=== PATIENT | female | born 1975 | race Caucasian/White ===

== ENCOUNTER 2022-05-30 08:55 | Outpatient (CLI) | payer MEDICAID, SELFPAY ==
--- NOTE | 2022-05-30 09:15 | CRLHL7_ITS ---
For Patients: As a result of the 21st Century Cures Act, medical imaging exams and procedure reports are released immediately into your electronic medical record. You may view this report before your referring provider. If you have questions, please contact your health care provider. BILATERAL BREAST MRI WITHOUT AND WITH GADOLINIUM CLINICAL HISTORY: 46-year-old female with history of LEFT breast atypical ductal hyperplasia. INDICATION FOR BREAST MRI: Screening breast MRI in this high-risk woman. COMPARISON STUDIES: Mammogram 11/29/2021. CONTRAST: 15 mL Dotarem. TECHNIQUE: The patient was positioned prone using a breast coil. Multiple imaging sequences were obtained using 1-1.5 mm thick slices with no gap. The image sequences include T2-weighted STIR in the axial plane, T1-weighted nonfat-saturated gradient echo in the axial plane, pre- and post-contrast T1-weighted FLASH 3D with fat suppression in the axial plane, and T1-weighted FLASH high-resolution 3D with fat suppression in the sagittal plane. Image post-processing was performed on a [employer] workstation. Complex 3D rendering including maximum intensity projections (MIPS) and volumetric renderings were obtained to optimize visualization of the extent of pathology and relationship to the nipple, skin, and chest wall. This aids in determining feasibility of breast conservation surgery. Subtraction, multiplanar reconstruction, mean curve determination, and angiogenesis mapping were also performed. The study was technically adequate. FINDINGS: Amount of Fibroglandular Tissue: Heterogeneous fibroglandular tissue. Breast background enhancement: Minimal. RIGHT and RIGHT breast: No suspicious mass or mass enhancement in either breast. Lymph nodes: No morphologically abnormal axillary lymph nodes or internal mammary lymph nodes. Other findings: None. IMPRESSIONS AND RECOMMENDATIONS: No MRI findings for malignancy in either breast. No morphologically abnormal axillary lymph nodes or internal mammary lymph nodes. Would recommend continuing with yearly screening mammography. If screening MRIs are felt be indicated, recommend that these be offset at six month intervals with the screening mammogram. BI-RADS: BI-RADS Category 2: Benign Nolvia Kimbrough M.D. Diagnostic/Breast Radiologist [email or web address] Transcribed: 10:00 a.m. DW/Dictated by: Nolvia Kimbrough MD @ 06/02/2022 9:38:00 AM (Electronically Signed)
== END 2022-05-30 08:56 | disposition home or self-care (01) ==
LOC: MRI 08:58
PROVIDERS: PCP Family Medicine; Visit Provider Surgery
DX: N60.92 Unspecified benign mammary dysplasia of left breast (principal)
CPT/HCPCS: 77049; A9575

== ENCOUNTER 2022-06-12 14:08 | Emergency (ER) | payer MEDICAID, SELFPAY ==
[2022-06-12 14:30] VITALS: BP 124/86; PULSE 89; RESP 16; TEMP 36.9; O2SAT 97; BMI 21.5
--- NOTE | 2022-06-12 14:53 | CRLHL7_ITS ---
For Patients: As a result of the Cures Act, medical imaging exams and procedure reports are released immediately into your electronic medical record. You may view this report before your referring provider. If you have questions, please contact your health care provider. INDICATION: Facial injury. TECHNIQUE: CT maxillofacial without contrast. COMPARISON: None. FINDINGS: Facial bones: No fractures or bone lesions. Specifically the nasal bones, temporomandibular joints, maxilla and mandible appear intact. Orbits and globes: Unremarkable. Globes are intact. No sign of intraorbital hemorrhage or emphysema. Sinuses: No acute or significant findings. Soft tissues: Unremarkable. IMPRESSION: Negative facial CT. No sign of acute injury. Please note that all CT scans at this facility use dose modulation, iterative reconstruction, and/or weight-based dosing when appropriate to reduce radiation dose to as low as reasonably achievable. Dictated by Matt Agustin MD @ 06/12/2022 4:16:27 PM (Electronically Signed)
--- NOTE | 2022-06-12 14:53 | CRLHL7_ITS ---
For Patients: As a result of the Century Cures Act, medical imaging exams and procedure reports are released immediately into your electronic medical record. You may view this report before your referring provider. If you have questions, please contact your health care provider. INDICATION: Fall 2 weeks ago. TECHNIQUE: CT head without contrast. COMPARISON: None. FINDINGS: CSF spaces: Within normal limits for age. Brain parenchyma and extra-axial spaces: The cavanaugh-white differentiation is normal. No sign of mass, hemorrhage, or midline shift. No extra-axial fluid collection. Skull base and calvarium: The visualized paranasal sinuses and mastoid air cells demonstrate no acute or significant findings. The visualized orbits are grossly unremarkable. Mild soft tissue swelling superior to the right orbit. No skull fractures. IMPRESSION: No acute intracranial hemorrhage identified. No skull fractures identified. Please note that all CT scans at this facility use dose modulation, iterative reconstruction, and/or weight-based dosing when appropriate to reduce radiation dose to as low as reasonably achievable. Dictated by Matt Agustin MD @ 06/12/2022 4:18:44 PM (Electronically Signed)
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
[2022-06-12 16:41] VITALS: BP 124/86; PULSE 89; RESP 16; TEMP 36.9
== END 2022-06-12 16:41 | disposition home or self-care (01) ==
PROVIDERS: Emergency Provider Emergency Medicine Emergency Medical Services; PCP Family Medicine
DX: S09.90XA Unspecified injury of head, initial encounter (principal); S20.211A Contusion of right front wall of thorax, initial encounter; V00.031A Pedestrian on foot injured in collision with rider of standing electric scooter, initial encounter
CPT/HCPCS: 70450; 70486; 99284; 99285

== ENCOUNTER 2022-12-24 08:09 | Outpatient (CLI) | payer MEDICAID, SELFPAY ==
--- NOTE | 2022-12-24 08:15 | CRLHL7_ITS ---
For Patients: As a result of the Century Cures Act, medical imaging exams and procedure reports are released immediately into your electronic medical record. You may view this report before your referring provider. If you have questions, please contact your health care provider. BILATERAL SCREENING MAMMOGRAM WITH COMPUTER-AIDED DETECTION AND TOMOSYNTHESIS TECHNIQUE: CC and MLO views were obtained. These mammographic images have been obtained using full-field digital technique. These mammographic images were interpreted with the benefit of computer-aided detection. Breast Tomosynthesis was used in this interpretation. COMPARISON FILM: 11/13/21. FINDINGS: The breasts are heterogeneously dense, which may obscure small masses IMPRESSION: There is no radiographic evidence for malignancy. ASSESSMENT: BI-RADS Category 2: Benign RECOMMENDATION: Routine screening mammogram in 1 year. A lay language report of this examination will be provided to the patient. Colton Mcintyre M.D. Diagnostic Radiologist [email or web address] Transcribed: 12:52 p.edda fallon/Dictated by: Colton Mcintyre MD @ 12/24/2022 11:09:00 AM (Electronically Signed)
== END 2022-12-24 08:10 | disposition home or self-care (01) ==
LOC: MAMMO 08:09
PROVIDERS: PCP Family Medicine; Visit Provider Surgery
DX: Z12.31 Encounter for screening mammogram for malignant neoplasm of breast (principal); R92.2 Inconclusive mammogram
CPT/HCPCS: 77063; 77067

== ENCOUNTER 2023-04-29 09:05 | Outpatient (CLI) | payer MEDICAID, SELFPAY | END 2023-04-29 09:06 | disposition home or self-care (01) | PROVIDERS: PCP Family Medicine; Visit Provider Family Medicine | DX: F10.10 Alcohol abuse, uncomplicated (principal); R11.10 Vomiting, unspecified; Z13.6 Encounter for screening for cardiovascular disorders | CPT/HCPCS: 80053; 80061; 83690 ==

== ENCOUNTER 2023-05-12 11:42 | Outpatient (CLI) | payer MEDICAID, SELFPAY ==
--- NOTE | 2023-05-12 12:09 | W.ANESCHARGE ---
Anesthesia Charges Start Date/Time Anesthesia Start Date: 05/12/23 Anesthesia Start Time: 12:18 Stop Date/Time Anesthesia Stop Date: 05/12/23 Anesthesia Stop Time: 13:04
--- NOTE | 2023-05-12 13:06 | W.ANESCHARGE ---
Anesthesia Charges Start Date/Time Anesthesia Start Date: 05/12/23 Anesthesia Start Time: 12:18 Stop Date/Time Anesthesia Stop Date: 05/12/23 Anesthesia Stop Time: 13:04
== END 2023-05-12 11:43 | disposition home or self-care (01) ==
LOC: OP CLINIC 11:42
PROVIDERS: PCP Family Medicine; Visit Provider Surgery
DX: Z12.11 Encounter for screening for malignant neoplasm of colon (principal); K63.5 Polyp of colon; K64.4 Residual hemorrhoidal skin tags
CPT/HCPCS: 00811; 45385; 88305; J2405; J2704

== ENCOUNTER 2023-06-22 14:34 | Outpatient (CLI) | payer MEDICAID, SELFPAY | END 2023-06-22 14:35 | disposition home or self-care (01) | PROVIDERS: PCP Family Medicine; Visit Provider Family Medicine | DX: R11.0 Nausea (principal); R10.11 Right upper quadrant pain; R63.4 Abnormal weight loss | CPT/HCPCS: 80053; 83690 ==

== ENCOUNTER 2023-06-22 21:19 | Observation (INO) | payer MEDICAID, SELFPAY ==
[2023-06-22 21:50] VITALS: BP 116/76; PULSE 101; RESP 18; TEMP 37.1; O2SAT 98; BMI 19.2
--- NOTE | 2023-06-22 22:42 | ED_ITS ---
HPI - Abdominal Pain General Time Seen by Provider: 22:41 Date Seen: 06/22/23 Chief Complaint: Unspecified Complaint, Adult Stated Complaint: Dr. Mario sent her here Time Seen by Provider: 06/22/23 22:41 Source: patient, RN notes reviewed and old records reviewed Mode of arrival: ambulatory Limitations: no limitations History of Present Illness HPI narrative: Patient is a 47-year-old female that was referred to the ER by her primary care provider after her labs came back elevated tonight, LFTs were elevated and lipase was elevated. Patient went to clinic earlier today for 11-12 days of nausea and vomiting, inability to really keep anything in. She denied any fever, no abdominal pain, no blood in vomit. She has a recent history of significant alcohol use but has not drinking alcohol and 11 days. Patient states she did take 8 mg of Zofran that was given per prescription from the appointment, has not had any emesis now since 3:00 p.m. after taking that. She has taken a little bit of water and a little broth in but that is all. She has had some intermittent diarrhea. Looking at her visit with Dr. Mario from earlier today, there is some weight loss proceeding these issues. He felt there was a little bit of right upper quadrant tenderness when he called to speak with the ED provider, spoke with Dr. Hebert. She wonders if she is going to get IV fluids here or in the hospital, is also wondering about IV antibiotics. I reviewed with her that we would certainly be getting imaging, did already order gallbladder ultrasound to ensure that there were was no underlying gallstone as the causative pathology. Certainly we can start some IV fluids. If she is not having any abdominal pain, does not need to be admitted for pain control. If she cannot take orals that is a separate issue and may need IV fluid management. We will see how her imaging turns out, have added on a few other labs to recheck. Labs from earlier this afternoon show normal bilirubin, lipase 1523, AST 270, ALT 61, alkaline phosphatase 172. CBC was also done. Related Data Patient : No Previous Rx's Medication Instructions Recorded sertraline 100 mg tablet 150 mg (1.5 x 100 mg) PO QDAY #135 03/31/23 tabs clonazepam 0.5 mg tablet See Rx Instructions PO .ud #42 tabs 10/11/23 clonazepam 1 mg tablet See Rx Instructions PO QDAY #21 05/27/23 tabs escitalopram oxalate 10 mg tablet 10 mg PO QDAY #30 tabs 06/22/23 ondansetron 8 mg disintegrating 8 mg PO Q8H PRN nausea and 06/22/23 tablet vomiting #20 tabs Allergies Allergy/AdvReac Type Severity Reaction Status Date / Time Penicillins Allergy Mild Verified 06/22/23 23:53 Review of Systems Status of ROS Reports: 6 or more systems reviewed and unremarkable except as noted in History and below PFSH PFSH Surgical History Status post hysterectomy ?Z90.710 - Acquired absence of both cervix and uterus (ICD-10) Status post delivery ?Z98.891 - History of uterine scar from previous surgery (ICD-10) Status post appendectomy ?Z90.49 - Acquired absence of other specified parts of digestive tract (ICD- 10) Family History Other Colon cancer Hodgkins disease Social History Narrative: Nicotine vapor product user What is your current living situation?: I presently have a place to live Problems where you live: declined to answer In the past 12 months, utilities in danger of being shut off: no In past 12 months, lack of transportation kept you from medical appts, meetings, work, or getting things needed for daily living: no In the past 12 mos, have been you worried that your food would run out before you had money to buy more?: never true In the past 12 mos, the food you bought just didn't last and you didn't have money to buy more?: never true Smoking Status: Smoker, status unknown How often does anyone, including family, friends and others, physically hurt you : never How often does anyone, including family, friends and others, insult or talk down to you: never How often does anyone, including family, friends and others, threaten you with harm: never How often does anyone, including family, friends and others, scream or curse at you: never Little interest or pleasure in doing things: more than half the days Feeling down, depressed, or hopeless: more than half the days Exam Const: Vital Signs, click to edit/add: Vital Signs - 24 hr 06/22/23 21:50 Temperature 98.8 F Pulse Rate [Pulse Oximeter] 101 H Respiratory Rate 18 Blood Pressure [Ri ght Upper Arm] 116/76 Pulse Oximetry 98 Oxygen Delivery Me thod Room Air Yulia is a 47-year-old female that is alert, interactive, no apparent distress. Sclera clear, conjugate gaze, very pleasant, speaking in complete sentences with normal speech. Neck is supple, no masses, lungs are clear with good air entry. CV regular rate and rhythm, no murmur. Abdomen is soft, nondistended, no rebound or guarding, no organomegaly, nontender. She certainly does not have any epigastric or right upper quadrant tenderness on my examination tonight. Skin visualized without any jaundice or rash. Documenting provider has reviewed patient's vital signs: yes Course Course ED Course: Will place an IV, give her L of normal saline. She is not feeling nauseated right now. Will recheck amylase and lipase, lactate, coagulation factors, confirm negative alcohol status. I have ordered right upper quadrant ultrasound to look at possibility of gallbladder disease with gallstones but do wonder abo ut abdominal imaging with CT. She really is not tender at all. I do wonder possibly the lipase might be coming from the nausea and vomiting that she states has been quite prominent. Her weight loss over the last few months is also worrisome. Have discussed with her the doing CT abdomen pelvis with IV contrast while she is here, she would like to proceed with this and I did subsequently order it. Reevaluation(s) Time of Reevaluation #1: 01:08 Reevaluation #1: Reviewed with patient her CT findings. 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 She does not seem to be symptomatic from this, would have her follow-up outpatient. Will have them obtain a urinalysis just to ensure no concerning underlying changes with this. She has had history a kidney stone before that required intervention. We reviewed the ultrasound findings. She understands that she will likely be getting an MRCP later today. We did discuss the remote possibility of needing an ERCP which would require transfer. At this time she is not having any pain, nausea is better overall than it has been. She is done with her initial fluids. Will order more IV fluids and an IV dose of Zofran for her to ensure that we continue to keep her nausea and vomiting controlled. Consultations Consultation #1: Just spoke with the E- hospitalist Dr. Fung, he will accept patient, plan will be for MRCP in the morning, IV fluid and nausea management overnight, pain management if it is needed. Time: 00:59 Vital Signs Vital signs: Initial Vital Signs Temperature 98.8 F 06/22/23 21:50 Temperature Source Temporal Artery Scan 06/22/23 21:50 Pulse Rate 101 H 06/22/23 21:50 Respiratory Rate 18 06/22/23 21:50 Blood Pressure 116/76 06/22/23 21:50 Blood Pressure Mean 89 06/22/23 21:50 Blood Pressure Position Sitting 06/22/23 21:50 Pulse Oximetry 98 06/22/23 21:50 Oxygen Delivery Method Room Air 06/22/23 21:50 Vital Signs Temperature 98.8 F 06/22/23 21:50 Pulse Rate 101 H 06/22/23 21:50 Respiratory Rate 18 06/22/23 21:50 Blood Pressure 116/76 06/22/23 21:50 Pulse Oximetry 98 06/22/23 21:50 Oxygen Delivery Method Room Air 06/22/23 21:50 Temperature 98.8 F 06/22/23 21:50 Pulse Rate 101 H 06/22/23 21:50 Respiratory Rate 18 06/22/23 21:50 Blood Pressure 116/76 06/22/23 21:50 Pulse Oximetry 98 06/22/23 21:50 Oxygen Delivery Method Room Air 06/22/23 21:50 Medications Administered Medications: Discontinued Medications Generic Name Dose Route Start Last Admin Trade Name Freq PRN Reason Stop Dose Admin Sodium Chloride 1,000 mls @ 500 mls/hr 06/22/23 22:52 06/22/23 23:53 0.9 % Sodium Chloride 1000 Ml IV 06/23/23 00:51 500 mls/hr .Q2H GENOVEVA Administration MDM - Abdominal Pain Lab Data Attestation: I reviewed the patient's lab results. Labs: Lab Results 06/22/23 Range/Units 23:54 INR 1.02 (0.91-1.10) APTT 28 (23-33) Seconds Lactate 0.6 (0.5-1.9) mmol/L Magnesium 1.7 (1.5-2.6) mg/dL Amylase 197 H (18-89) U/L Lipase 1336 H (23-300) U/L Ethyl Alcohol < 0.01 L (0.01-0.03) % Imaging Data CT scan - abdomen: Attestation: I have reviewed the pertinent imaging results. Radiologist's impression: Patient: YULIA VELOZ Facility:?[facility] Patient ID:?[id number] Site Patient ID:?[id number]. Site :?[id number] Study:?CT Abdomen/Pelvis w/ 55cc [id number]/2023 11:55:42 PM Ordering Physician:Dominic Walters Final Report: INDICATION: Nausea and vomiting for 12 days, elevated lipase, weight loss TECHNIQUE: CT abdomen and pelvis acquired with 55 cc Isovue 370 IV contrast. Permanently re corded images are archived. COMPARISON: Right upper quadrant ultrasound from the same day. FINDINGS: Lower chest: Unremarkable. Liver: Diffuse fatty infiltration with a more ill-defined area of hyp oattenuation adjacent to the falciform ligament in the left hepatic lobe, compatible with increased focal fatty infiltration. Normal size and contour. No suspicious mass. Gallbladder and bile ducts: Unremarkable. No stones or inflammation. No biliary dilatation. Pancreas: Unremarkable. No mass or inflammation. Spleen: Unremarkable. Normal in size. No masses. Adrenal glands: Unremarkable. No nodules. 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 The lower pole moiety appears chronically occluded with associated dilatation of the lower pole collecting system. This lower pole moiety contains a 12 mm stone. The upper pole is normal. Unremarkable right kidney. Normal ureters and urinary bladder. GI tract: Fatty infiltration of the submucosa of the colon diffusely. Normal in caliber. No sign of inflammation. The appendix is not clearly visualized; however, there are no inflammatory changes in the right lower quadrant. Vasculature: Abdominal aorta is normal in caliber. Mesenteric arteries are patent. Lymph nodes: No lymphadenopathy. Peritoneum/Abdominal Wall: Unremarkable. No free air or significant free fluid. Pelvis: Status post hysterectomy. Bones: Unremarkable for age. 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 This lower pole moiety contains a 12 mm stone within the lower pole moiety. While these findings are likely chronic it is difficult to exclude superimposed infection if there is focal left-sided flank tenderness. Hepatic steatosis. Fatty infiltration of the submucosa of the colon diffusely. This can be seen with obesity or chronic inflammatory bowel disease. Please note that all CT scans at this facility use dose modulation, iterative reconstruction, and/or weight-based dosing when appropriate to reduce radiation dose to as low as reasonably achievable. Dictated by Charles Cleveland MD @ 06/23/2023 12:25:30 AM (Electronic Signature) US - abdomen: Attestation: I have reviewed the pertinent imaging results. Radiologist's impression: Patient: YULIA VELOZ Facility:?[facility] Patient ID:?[id number] Site Patient ID:?[id number]. Site :?[id number] Study:?US Abdomen/Pelvis -06/22/2023 11:45:19 PM Ordering Physician:?Marleen Walters Final Report: INDICATION: Right upper quadrant abdomen pain. TECHNIQUE: Ultrasound abdomen limited. Sonographic images of the right upper quadrant were obtained using cavanaugh-scale and color Doppler images. COMPARISON: None. FINDINGS: Liver: Echogenic hepatic parenchyma. No suspicious masses. No intrahepatic biliary dilatation. Gallbladder: Biliary sludge. Normal wall thickness. No pericholecystic fluid. Negative sonographic Hooks sign. Common bile duct: 9 mm. Pancreas: Unremarkable. Right kidney: Normal in size. Normal echotexture and cortex. No suspicious masses, stones, or hydronephrosis. Vasculature: Proximal abdominal aorta and IVC are unremarkable. IMPRESSION: Mild dilation of common bile duct measuring 9 millimeters. Distal obstructing stone not excluded. Recommend correlation with LFTs, including bilirubin. MRCP may be of benefit if clinically indicated. Biliary sludge without cholelithiasis or cholecystitis. Hepatic steatosis. Dictated by Kyle Osorio MD @ 06/23/2023 12:11:20 AM (Electronic Signature) Discharge Plan Discharge Clinical Impression: Common bile duct dilatation, Acute pancreatitis Patient Disposition: Admitted As Observation
--- NOTE | 2023-06-22 22:43 | CRLHL7_ITS ---
For Patients: As a result of the Century Cures Act, medical imaging exams and procedure reports are released immediately into your electronic medical record. You may view this report before your referring provider. If you have questions, please contact your health care provider. INDICATION: Right upper quadrant abdomen pain. TECHNIQUE: Ultrasound abdomen limited. Sonographic images of the right upper quadrant were obtained using cavanaugh-scale and color Doppler images. COMPARISON: None. FINDINGS: Liver: Echogenic hepatic parenchyma. No suspicious masses. No intrahepatic biliary dilatation. Gallbladder: Biliary sludge. Normal wall thickness. No pericholecystic fluid. Negative sonographic Hooks sign. Common bile duct: 9 mm. Pancreas: Unremarkable. Right kidney: Normal in size. Normal echotexture and cortex. No suspicious masses, stones, or hydronephrosis. Vasculature: Proximal abdominal aorta and IVC are unremarkable. IMPRESSION: Mild dilation of common bile duct measuring 9 millimeters. Distal obstructing stone not excluded. Recommend correlation with LFTs, including bilirubin. MRCP may be of benefit if clinically indicated. Biliary sludge without cholelithiasis or cholecystitis. Hepatic steatosis. Dictated by Kyle Osorio MD @ 06/23/2023 12:11:20 AM (Electronically Signed)
--- NOTE | 2023-06-22 22:57 | CRLHL7_ITS ---
For Patients: As a result of the 21st Century Cures Act, medical imaging exams and procedure reports are released immediately into your electronic medical record. You may view this report before your referring provider. If you have questions, please contact your health care provider. INDICATION: Nausea and vomiting for 12 days, elevated lipase, weight loss TECHNIQUE: CT abdomen and pelvis acquired with 55 cc Isovue 370 IV contrast. Permanently recorded images are archived. COMPARISON: Right upper quadrant ultrasound from the same day. FINDINGS: Lower chest: Unremarkable. Liver: Diffuse fatty infiltration with a more ill-defined area of hypoattenuation adjacent to the falciform ligament in the left hepatic lobe, compatible with increased focal fatty infiltration. Normal size and contour. No suspicious mass. Gallbladder and bile ducts: Unremarkable. No stones or inflammation. No biliary dilatation. Pancreas: Unremarkable. No mass or inflammation. Spleen: Unremarkable. Normal in size. No masses. Adrenal glands: Unremarkable. No nodules. 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 The lower pole moiety appears chronically occluded with associated dilatation of the lower pole collecting system. This lower pole moiety contains a 12 mm stone. The upper pole is normal. Unremarkable right kidney. Normal ureters and urinary bladder. GI tract: Fatty infiltration of the submucosa of the colon diffusely. Normal in caliber. No sign of inflammation. The appendix is not clearly visualized; however, there are no inflammatory changes in the right lower quadrant. Vasculature: Abdominal aorta is normal in caliber. Mesenteric arteries are patent. Lymph nodes: No lymphadenopathy. Peritoneum/Abdominal Wall: Unremarkable. No free air or significant free fluid. Pelvis: Status post hysterectomy. Bones: Unremarkable for age. 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 This lower pole moiety contains a 12 mm stone within the lower pole moiety. While these findings are likely chronic it is difficult to exclude superimposed infection if there is focal left-sided flank tenderness. Hepatic steatosis. Fatty infiltration of the submucosa of the colon diffusely. This can be seen with obesity or chronic inflammatory bowel disease. Please note that all CT scans at this facility use dose modulation, iterative reconstruction, and/or weight-based dosing when appropriate to reduce radiation dose to as low as reasonably achievable. Dictated by Charles Cleveland MD @ 06/23/2023 12:25:30 AM (Electronically Signed)
[2023-06-22] MEDS: 0.9 % SODIUM CHLORIDE 1000 ml 1,000 ML 500 ML IV (23:53)
[2023-06-22 23:57] LABS: Lactate* 0.6 mmol/L (0.5-1.9)
[2023-06-23 00:16] LABS: Amylase* 197 U/L (18-89); Lipase* 1336 U/L (23-300)
[2023-06-23 00:17] LABS: Magnesium* 1.7 mg/dL (1.5-2.6)
[2023-06-23 00:20] LABS: Ethanol* < 0.01 % (0.01-0.03); INR 1.02 (0.91-1.10)
[2023-06-23 00:21] LABS: Partial Thromboplastin Time* 28 Seconds (23-33)
[2023-06-23] MEDS: LACTATED RINGERS 1000 ML 1,000 ML 125 ML IV ×3 (01:58→19:23)
[2023-06-23] MEDS: ONDANSETRON 2 MG/ML inj 4 MG IVP (01:58)
[2023-06-23 02:11] VITALS: BP 116/71; PULSE 80; RESP 16; O2SAT 99; BMI 19.7
--- NOTE | 2023-06-23 02:15 | ED.NURSE ---
report to mino SANCHEZ med [facility]
--- NOTE | 2023-06-23 03:38 | W.PM.THH&P_ITS ---
Telehealth- H&P: HPI History of Present Illness Date Seen: 06/23/23 Chief complaint: Nausea and Vomiting with Lab Abnormality Narrative: Yulia Childress is seen as an Interactive Telehealth visit. Yulia Childress is a 47 year old male who was told to present to the emergency room by her primary care provider for abnormal liver and pancreatic labs. Yulia has a significant past medical history of depression, anxiety, migraine headaches and alcohol abuse. Yulia had presented to her primary doctor today with ongoing 11- day history of unrelenting nausea and vomiting. Laboratory investigation was done at the time of the clinic visit, but when the results returned later, Yulia was called and was told to present to the emergency room for further evaluation. In the emergency room, Yulia states that she has had unrelenting nausea and vomiting over the last 11 days but really denies any significant pain. She states that she has been more weak and also dizzy with her inability to tolerate oral intake. She states that she only has some pain when vomiting in her lower back and very minimal pain in her abdomen toward the right upper quadrant. She states that she has been using alcohol approximately 2 drinks per day of [place] Rosalio up until 11 days ago, but at that time she quit drinking and has not had a drink since. She also admits to using some intermittent marijuana but not on a daily basis. She states that her vomitus has mostly been bile type looking. She denies any dark or tarry stools and states that her stools have been quite light. Eating does trigger her nausea, but she continues to have ongoing nausea and vomiting even when not eating. She has had some chills but denies any fever. She was evaluated in the emergency room with a CT scan and ultrasound of the abdomen and with the abnormal findings, she is currently being admitted to the medical service for further evaluation and treatment. At the time I am seeing Yulia, she confirms the above history. She otherwise denies any other acute complaints or problems currently. EMR is reviewed for history. Review of Systems Status of ROS: Reports: 10 or more systems reviewed and unremarkable except as noted in History and below [facility] Surgical History Status post hysterectomy ?Z90.710 - Acquired absence of both cervix and uterus (ICD-10) Status post delivery ?Z98.891 - History of uterine scar from previous surgery (ICD-10) Status post appendectomy ?Z90.49 - Acquired absence of other specified parts of digestive tract (ICD- 10) Family History Other Colon cancer Hodgkins disease Social History Narrative: Nicotine vapor product user What is your current living situation?: I presently have a place to live Problems where you live: declined to answer In the past 12 months, utilities in danger of being shut off: no In past 12 months, lack of transportation kept you from medical appts, meetings, work, or getting things needed for daily living: no In the past 12 mos, have been you worried that your food would run out before y ou had money to buy more?: never true In the past 12 mos, the food you bought just didn't last and you didn't have money to buy more?: never true Smoking Status: Smoker, status unknown How often does anyone, including family, friends and others, physically hurt you : never How often does anyone, including family, friends and others, insult or talk down to you: never How often does anyone, including family, friends and others, threaten you with harm: never How often does anyone, including family, friends and others, scream or curse at you: never Little interest or pleasure in doing things: more than half the days Feeling down, depressed, or hopeless: more than half the days Meds Home Medications and Allergies Allergies Allergy/AdvReac Type Severity Reaction Status Date / Time Penicillins Allergy Mild Verified 06/22/23 23:53 Exam Narrative Exam Narrative: Physical Exam GENERAL: ?vital signs reviewed, well developed and nourished HEENT: pupils are equal round and reactive to light, extraocular movements are grossly within normal limits and oral mucosa is moist. NECK: Supple without lymphadenopathy or thyromegaly according to nursing staff examination observation HEART: Regular rate and rhythm without any rubs, murmurs or gallops.? LUNGS: Clear to auscultation bilaterally with good air movement throughout ABDOMEN: Observation from nurse assisted exam, abdomen appears soft, with minimal tenderness in the right upper quadrant with Positive bowel sounds noted. EXTREMITIES: Strength and sensation is observed to be grossly within normal limits in the upper and lower extremities.? No focal strength deficit is observed SKIN:? Observed warm and dry with color normal NEURO: Alert, awake and oriented ?3. Answers all questions appropriately. No focal neuro deficits are noted. PSYCH: ?Affect normal Const Vital Signs, click to edit/add: Vital Signs - 24 hr 06/22/23 21:50 Temperature 98.8 F Pulse Rate [Pulse Oximeter] 101 H Respiratory Rate 18 Blood Pressure [Right Upper Arm] 116/76 Pulse Oximetry 98 Oxygen Delivery Method Room Air Documenting provider has reviewed patient's vital signs: yes Hospitalist - H&P: Result Imaging US - abdomen: Radiologist's impression: IMPRESSION: Mild dilation of common bile duct measuring 9 millimeters. Distal obstructing stone not excluded. Recommend correlation with LFTs, including bilirubin. MRCP may be of benefit if clinically indicated. 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 This lower pole moiety contains a 12 mm stone within the lower pole moiety. While these findings are likely chronic it is difficult to exclude superimposed infection if there is focal left-sided flank tenderness. Hepatic steatosis. Fatty infiltration of the submucosa of the colon diffusely. This can be seen with obesity or chronic inflammatory bowel disease. Assessment and Plan Assessment and plan (1) Nausea and vomiting: Status: Acute Plan Assessment: 1. Unrelenting nausea and vomiting 2. Abnormal liver enzymes with obstructive pattern and ultrasound showing mild dilatation of common bile duct measuring 9 mm with distal obstruction not excluded recommending MRCP 3. Elevated lipase consistent with acute pancreatitis 4. Alcohol abuse question contribution to numbers above 5. Depression with anxiety 6. Volume depletion/dehydration from #1 above 7. Minor hyponatremia most likely due to hypovolemic hyponatremia 8. Marijuana usage Plan: At this time Yulia will be admitted to the medical service. She does have a picture of an obstructive type process with the ultrasound showing possible minor dilated common bile ducts and also elevated liver enzymes along with eleva arash pancreatic enzymes. It does seem that she may either have an obstructing gallstone or sphincter of Oddi dysfunction which seems to be causing unrelenting nausea and vomiting. There is also a consideration for possible alcohol induced nausea and vomiting, but if Yulia is being truthful and has not had a drink over the last 11 days, one would think that her nausea and vomiting should have subsided by now. She also has a history of marijuana usage and I did discuss with her the possibility of marijuana cyclic vomiting syndrome which also is in the differential diagnosis currently. At this time I will ask her to maintain a clear liquid diet with plans of an MRCP for the a.m. I will order symptomatic antinausea medications and will also supply IV fluids for volume resuscitation and hydration. She currently is not having any pain and is only complaining of the unrelenting nausea and vomiting which has seemingly subsided since her admission. I will follow-up with chemistries, liver enzymes, hematology labs and inflammatory markers for the a.m. including lipase. I have discussed this plan with Yulia and she is agreeable to proceed. We will continue to follow closely from medical standpoint. I have addressed CODE STATUS with Yulia and she desires full code. This will be ordered as per her wishes Telehealth: Statement Statement Telehealth Visit: Today's History and Physical is provided via interactive telehealth by Boris Mccormick MD.? Patient is located at [facility].? Provider is located at [facility].? Nursing staff assisted with the patient's exam. The visit being done today meets criteria for a telehealth visit and the patient or patient?s parent/guardian is aware the visit is a telehealth visit. Camera Start Time: 02:58 Camera End Time: 03:19
--- NOTE | 2023-06-23 03:43 | CRLHL7_ITS ---
For Patients: As a result of the Century Cures Act, medical imaging exams and procedure reports are released immediately into your electronic medical record. You may view this report before your referring provider. If you have questions, please contact your health care provider. INDICATION: Nausea and vomiting for the last 12 days; elevated lipase; weight loss. COMPARISON: CT abdomen and pelvis with intravenous contrast 06/22/2023; ultrasound examination of the right upper quadrant of the abdomen 06/22/2023. TECHNIQUE: Precontrast T1 and T2 weighted imaging; T2 haste imaging; diffusion weighted imaging; in and out of phase imaging; postcontrast imaging including subtraction; 20 cc of Dotarem contrast was injected; MRCP. FINDINGS: Extrahepatic common bile duct measures 8 mm in diameter without any evidence of choledocholithiasis. No evidence of dilatation of the intra or extrahepatic biliary duct system. Gallbladder is unremarkable. Evidence of focal fatty infiltration involving segment 4 of the liver. No evidence of pancreatic ductal dilatation. No peripancreatic inflammatory changes. No adrenal pathology. Hydronephrosis and hydroureter left kidney with renal calculi on the left. No retroperitoneal lymphadenopathy. No evidence of abdominal ascites. A 1 cm cystic lesion head of the pancreas; rule out side branch IPMN; suggest obtaining a followup MRCP and MRI of the abdomen in 12 months duration. Impression: 1. Focal fatty infiltration of segment 4 of the liver. 2. No MR evidence of pancreatitis or pancreatic ductal dilatation. 3. Extrahepatic common bile duct measures 8 mm in diameter without any evidence of choledocholithiasis. 4. Hydronephrosis left kidney with left renal calculi. Dictated by Timothy Izaguirre MD @ 06/23/2023 1:55:49 PM (Electronically Signed)
[2023-06-23 06:06] LABS: Basophils Absolute Auto 0.03 K/uL (0.00-0.30); Basophils Percent Auto 0.3 % (0.0-3.0); Eosinophils Absolute Auto 0.05 K/uL (0.00-0.50); Eosinophils Percent Auto 0.5 % (0.0-7.0); Hemoglobin* 11.5 gm/dL (12.0-16.0); Immature Granulocytes Abs Auto 0.08 K/uL (0.00-0.30); Immature Granulocytes Pct Auto 0.8 %; Mean Corpuscular HGB Conc 35 gm/dL (32-36); Mean Corpuscular Hemoglobin 33 pg (26-34); Mean Corpuscular Volume 95 fL (80-100); Monocytes Percent Auto 11.7 % (0.0-11.0); Neutrophils Percent Auto 72.7 % (42.0-72.0); Platelet Count* 370 K/uL (140-440); RDW Coefficient of Variation % 13.5 % (11.5-15.5); Red Blood Count 3.47 m/uL (4.00-5.20); White Blood Count* 9.59 K/uL (4.50-11.00)
[2023-06-23 06:07] LABS: Slide Review Reflex No
[2023-06-23 06:14] LABS: Albumin* 3.6 g/dL (3.3-5.0); Chloride* 96 mmol/L (96-114); Sodium* 133 mmol/L (135-149)
[2023-06-23 06:18] LABS: Alanine Aminotransferase* 38 U/L (4-35); Alkaline Phosphatase* 126 U/L (40-150); Anion Gap 11 mEq/L (7-15); Aspartate Amino Transferase* 155 U/L (12-35); Bilirubin Total* 0.7 mg/dL (0.1-1.5); Blood Urea Nitrogen* 3 mg/dL (5-24); Calcium* 8.9 mg/dL (8.4-10.6); Carbon Dioxide* 26 mmol/L (20-32); Creatinine* 0.4 mg/dL (0.5-1.5); Est. Creatinine Clearance* 142.93; Estimated Glomerular Filt Rate 123 ml/min; Glucose* 136 mg/dL (60-115); Lipase* 1652 U/L (23-300); Total Protein* 6.4 g/dL (6.0-8.3)
[2023-06-23 06:21] LABS: C Reactive Protein* 6.1 mg/dL (0.5-1.0)
[2023-06-23 07:04] LABS: HCG Qualitative Serum* Negative (Negative)
[2023-06-23 07:49] VITALS: BP 104/79; PULSE 69; RESP 16; TEMP 36.6; O2SAT 100
[2023-06-23] MEDS: POTASSIUM BICARB 25 MEQ EFFERVESCENT TAB PO ×3 (08:07→12:00)
[2023-06-23 08:44] LABS: Appearance Urine Cloudy (Clear); Bilirubin Urine Negative (Negative); Blood Urine 1+ (Negative); Color Urine Yellow (Yellow); Glucose Urine Negative (Negative); Ketones Urine Negative (Negative); Leukocyte Esterase Urine 3+ (Negative); Nitrite Urine Negative (Negative); Protein Urine Negative (Negative); Urobilinogen Urine 0.2 (0.2-1.0)
[2023-06-23 08:50] LABS: Amphetamine Screen Urine Negative (Negative); Barbiturate Screen Urine Negative (Negative); Benzodiazepines Screen Urine Negative (Negative); Cannabinoid Screen Urine POSITIVE (Negative); Cocaine Screen Urine Negative (Negative); Methadone Screen Urine Negative (Negative); Methamphetamines Screen Urine Negative (Negative); Opiate Screen Urine Negative (Negative); Oxycodone Screen Urine Negative (Negative); Phencyclidine Screen Urine Negative (Negative); Tricyclic Antidepressant Urine Negative (Negative)
[2023-06-23 08:57] LABS: Bacteria Urine Many; Squamous Epithelial Cell Urine Few (None-Few); WBC Urine >100 (0-5)
[2023-06-23] MEDS: ONDANSETRON ODT 4 MG TAB PO ×2 (09:50→19:49)
--- NOTE | 2023-06-23 11:35 | P.IMPN_ITS ---
Progress Note: A&P Assessment and plan (1) Acute pancreatitis: Problem details: -ultrasound shows mild dilation of common bile duct measuring 9 millimeters. Distal obstructing stone not excluded. Biliary sludge without cholelithiasis/cholecystitis. -transaminitis noted, continue to trend; lipase 1652, 1523 admission -clear liquid diet, maintenance IVF -pain and nausea management as needed -MRCP scheduled 06/23 Status: Acute (2) Hypokalemia: Problem details: -potassium 3.0 down from 3.6 on admission -supplement with potassium bicarbonate 25 mEq x 3, follow Status: Acute (3) Hyponatremia: Problem details: -likely hypovolemic, decreased oral intake x 12 days, perhaps in setting of chronic alcohol use -improved to 133 from 131, continue to monitor Status: Acute (4) Alcohol use: Problem details: -reported 2 drinks daily -AST/ALT ratio >4 (ratio >3 in April 2023) -monitor, consider CIWA Status: Acute (5) Abnormal urinalysis: Problem details: -asymptomatic, UC pending, defer antibiotics at this time Status: Acute Time Spent With Patient Total time spent: Total time spent caring for the patient today was 45 minutes. This includes time spent for the visit reviewing the chart, time spent during the visit, time spent after the visit and documentation and planning in coordination of care. Subjective Date Seen: 06/23/23 Interval history: Patient reports feeling a little better this morning. Remains slightly nauseous but has had no further vomiting. Tolerating clear liquids. Denies abdominal pain currently nor since onset of episode. No change in bowels. Denies UTI symptoms. No previous episodes of pancreatitis. Exam Narrative: Exam Narrative: PHYSICAL EXAM General: Pleasant, conversant, NAD HEENT: Normocephalic, atraumatic, sclera white, EOMI, oral mucosa moist Cardiovascular: RRR, S1S2. No pitting edema Pulmonary: CTA bilaterally without rhonchi, rales, expiratory wheezes. No dyspnea Abdominal: Soft, nondistended, NTTP, no guarding Neurological: Alert, answering questions appropriately, cranial nerves intact, no focal findings Extremities: No gross joint deformity or swelling. AROMI. Neurovascularly intact Skin: Warm, dry. Const: Vital Signs, click to edit/add: Vital Signs - 24 hr 06/22/23 21:50 06/23/23 02:11 06/23/23 02:11 Temperature 98.8 F Pulse Rate [Pulse Oximeter] 101 H 80 Respiratory Rate 18 16 16 Blood Pressure [Le ft Arm] 116/71 Blood Pressure [Ri ght Upper Arm] 116/76 Pulse Oximetry 98 99 99 Oxygen Delivery Me thod Room Air Room Air Room Air 06/23/23 07:49 06/23/23 07:49 Temperature 97.8 F Pulse Rate [Pulse Oximeter] 69 69 Respiratory Rate 16 16 Blood Pressure [Le ft Arm] 104/79 Blood Pressure [Ri ght Upper Arm] Pulse Oximetry 100 Oxygen Delivery Me thod Labs Labs: Laboratory Results - last 24 hr 06/22/23 06/23/23 06/23/23 23:54 05:41 08:14 WBC 9.59 RBC 3.47 L Hgb 11.5 L Hct 33.0 MCV 95 MCH 33 MCHC 35 RDW Coeff of Alyssa 13.5 Plt Count 370 Neut % (Auto) 72.7 H Lymph % (Auto) 14.0 L [place] % (Auto) 11.7 H Eos % (Auto) 0.5 Baso % (Auto) 0.3 Neut # (Auto) 7.00 Lymph # (Auto) 1.30 [place] # (Auto) 1.10 H Eos # (Auto) 0.05 Baso # (Auto) 0.03 Abs Immat Gran (auto) 0.08 Imm/Tot Granulo (auto) 0.8 INR 1.02 APTT 28 Sodium 133 L Potassium 3.0 L Chloride 96 Carbon Dioxide 26 Anion Gap 11 BUN 3 L Creatinine 0.4 L Estimated Creat Clear 142.93 Estimated GFR 123 Glucose 136 H Lactate 0.6 Calcium 8.9 Magnesium 1.7 Total Bilirubin 0.7 AST 155 H ALT 38 H Alkaline Phosphatase 126 C-Reactive Protein 6.1 H Total Protein 6.4 Albumin 3.6 Amylase 197 H Lipase 1336 H 1652 H HCG, Qual Negative Urine Color Yellow Urine Appearance Cloudy A Urine pH 7.0 Ur Specific [place] 1.010 Urine Protein Negative Urine Glucose (UA) Negative Urine Ketones Negative Urine Blood 1+ A Urine Nitrite Negative Urine Bilirubin Negative Urine Urobilinogen 0.2 Ur Leukocyte Esterase 3+ A Urine RBC 10-25 A Urine WBC >100 A Ur Squamous Epith Cells Few Urine Bacteria Many A Urine Opiates Screen Negative Ur Oxycodone Screen Negative Urine Methadone Screen Negative Ur Propoxyphene Screen Not Reportable Ur Barbiturates Screen Negative U Tricyclic Antidepress Negative Ur Phencyclidine Scrn Negative Ur Amphetamines Screen Negative U Methamphetamines Scrn Negative U Benzodiazepines Scrn Negative Urine Cocaine Screen Negative U Marijuana (THC) Screen POSITIVE A Ur Drug Screen Comment See Note Ethyl Alcohol < 0.01 L
[2023-06-23 11:49] VITALS: BP 104/72; PULSE 79; RESP 16; TEMP 36.7; O2SAT 100
[2023-06-23] MEDS: SERTRALINE 100 MG TABLET 150 MG PO (14:05)
[2023-06-23] MEDS: clonazePAM 0.5 MG TABLET 1 MG PO (14:05)
[2023-06-23 15:13] LABS: Potassium* 3.4 mmol/L (3.6-5.1)
[2023-06-23 15:30] VITALS: BP 107/70; PULSE 85; RESP 16; TEMP 37; O2SAT 98
--- NOTE | 2023-06-23 18:25 | PC.NURSE ---
End of Shift: Patient pleasant and cooperative. Patient vitally stable, lungs clear, BS WNL, IV running LR at 125. Patient denies pain even with abdominal palpitation. Patient independent in room. Patient tolerating diet. Patient did reports nausea in the morning PO zophran given once today. Patient urinating, and had two BM's today, once of which was incontinent diarrhea.
[2023-06-23 19:45] VITALS: BP 102/72; PULSE 87; RESP 16; TEMP 37; O2SAT 98
[2023-06-23] MEDS: clonazePAM 0.5 MG TABLET PO (21:27)
[2023-06-23] MEDS: ENOXAPARIN 40 MG/0.4 ML INJ SUBCUT (21:28)
--- NOTE | 2023-06-23 22:15 | PC.NURSE ---
End of Shift. Pt has been pleasant, no pain. no nausea but she did want po zofran and it was given. IV is patent. no abd pain or nausea per pt. pt had a regular diet with no problems. pt is up ab lubna. pt had some diarrhea x2 C-diff was ordered. she is eating, drinking and voiidng.
[2023-06-23 23:00] VITALS: BP 110/69; PULSE 84; RESP 16; TEMP 36.9; O2SAT 95
[2023-06-24 03:00] VITALS: BP 94/70; PULSE 70; RESP 16; TEMP 37; O2SAT 96
[2023-06-24] MEDS: LACTATED RINGERS 1000 ML 1,000 ML 125 ML IV ×2 (04:30→13:02)
--- NOTE | 2023-06-24 05:34 | PC.NURSE ---
SHIFT NOTE : Uneventful shift, pt independent in room, A&O. Denies SOB, CP, N/V, pain, and loose stools. No stool sample obtained this shift. VSS on RA.
[2023-06-24 06:29] LABS: Hematocrit 28.3 % (33.0-51.0); Hemoglobin* 9.7 gm/dL (12.0-16.0); Mean Corpuscular HGB Conc 34 gm/dL (32-36); Mean Corpuscular Hemoglobin 33 pg (26-34); Mean Corpuscular Volume 97 fL (80-100); Platelet Count* 277 K/uL (140-440); Red Blood Count 2.92 m/uL (4.00-5.20); White Blood Count* 7.84 K/uL (4.50-11.00)
[2023-06-24 06:49] LABS: Albumin* 2.8 g/dL (3.3-5.0); Chloride* 102 mmol/L (96-114)
[2023-06-24 06:50] LABS: Sodium* 134 mmol/L (135-149)
[2023-06-24 06:52] LABS: Anion Gap 4 mEq/L (7-15); Bilirubin Total* 0.4 mg/dL (0.1-1.5); Carbon Dioxide* 28 mmol/L (20-32); Creatinine* 0.3 mg/dL (0.5-1.5); Est. Creatinine Clearance* 196.82; Estimated Glomerular Filt Rate 132 ml/min
[2023-06-24 06:53] LABS: Alanine Aminotransferase* 29 U/L (4-35); Alkaline Phosphatase* 101 U/L (40-150); Aspartate Amino Transferase* 99 U/L (12-35); Calcium* 8.3 mg/dL (8.4-10.6); Glucose* 102 mg/dL (60-115); Lipase* 802 U/L (23-300); Total Protein* 5.1 g/dL (6.0-8.3)
[2023-06-24 06:55] LABS: Slide Review Reflex No
[2023-06-24 07:03] LABS: Blood Urea Nitrogen* < 2 mg/dL (5-24)
[2023-06-24 07:04] LABS: Potassium* 2.9 mmol/L (3.6-5.1)
[2023-06-24 08:40] VITALS: BP 116/90; PULSE 81; RESP 16; TEMP 37.1; O2SAT 98
[2023-06-24] MEDS: SERTRALINE 100 MG TABLET 150 MG PO (08:42)
[2023-06-24] MEDS: POTASSIUM BICARB 25 MEQ EFFERVESCENT TAB PO ×3 (08:42→12:20)
[2023-06-24] MEDS: clonazePAM 0.5 MG TABLET 1 MG PO (08:43)
[2023-06-24] MEDS: METOCLOPRAMIDE 10 MG TABLET PO ×4 (09:56→21:03)
--- NOTE | 2023-06-24 10:59 | PM.IMPN1 ---
Progress Note: A&P Assessment and plan (1) Acute pancreatitis: Problem details: -ultrasound shows mild dilation of common bile duct measuring 9 millimeters. Distal obstructing stone not excluded. Biliary sludge without cholelithiasis/cholecystitis. -transaminitis noted, continue to trend- trending down (06/24); lipase 802, down from 1652 and 1523 admission -clear liquid diet tolerated, regular diet with nausea, dry heaving, stools. Encouraged full liquid diet 06/24. Continue maintenance IVF -pain and nausea management as needed. 06/24 start Reglan scheduled q.i.d., slower advancement of diet -MRCP (06/23) shows focal fatty infiltration of the liver, no MR evidence of pancreatitis or pancreatic ductal dilatation, extrahepatic common bile duct measures 8 mm in diameter without any evidence of choledocholithiasis, hydronephrosis left kidney with left renal calculi. Discussed with patient and concern for acute episode related to alcohol use. -may need outpatient GI consult Status: Acute (2) Hypokalemia: Problem details: -potassium 3.0 down from 3.6 on admission -supplement with potassium bicarbonate 25 mEq x 3, follow- improved to 3.4 -potassium decreased 2.9, likely in setting of loose bowels last night. Will supplement again 25 mEq x3, with recheck Status: Acute (3) Hyponatremia: Problem details: -likely hypovolemic, decreased oral intake x 12 days, perhaps in setting of chronic alcohol use -continues to improve, 134 currently Status: Acute (4) Alcohol use: Problem details: -reported 2 drinks daily - likely more -AST/ALT ratio >4 (ratio >3 in April 2023). MRCP without significant findings otherwise. Discussed with patient. -last drink 12-14 days ago now. Encouraged continued sobriety. Is not interested in social science manager resources. Recommended looking into counseling given current stress, financial, work, relationship issues and recommendations for appropriate coping mechanisms. Status: Acute (5) Abnormal urinalysis: Problem details: -asymptomatic, UC remains pending, defer antibiotics at this time Status: Acute (6) Diarrhea: Problem details: -4 loose stools in past 24 hours. C difficile stool ordered -hypokalemic following stools. Will need supplement. -recommend slowly advancing diet, starting with full liquids Status: Acute Plan Hopeful for discharge 11/09, pending improve management of nausea, oral intake, improved potassium level. May need to discharge with antiemetic. Encouraged follow-up with counseling, sobriety. Consider outpatient GI follow-up. Time Spent With Patient Total time spent: Total time spent caring for the patient today was 45 minutes. This includes time spent for the visit reviewing the chart, time spent during the visit, time spent after the visit and documentation and planning in coordination of care. Subjective Date Seen: 06/24/23 Interval history: Patient continues to be nauseous with dry heaving this morning. Continues to deny any abdominal pain. Tolerated clears quite well yesterday however advanced her diet to regular diet last night and was not able to eat more than a few bites of meat or potatoes. Reported to have 3 stools last night, none early this morning. Her potassium yesterday afternoon was 3.4 after replacement, 2.9 this morning. Discussed findings of MRCP. Revisited alcohol use. Admits to sometimes drinking herself to sleep. 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 Has also been smoking marijuana and using gummies to cope. Exam Narrative: Exam Narrative: PHYSICAL EXAM General: Conversant, appears more worn out this morning, otherwise NAD Cardiovascular: RRR, S1S2. No pitting edema Pulmonary: CTA bilaterally without rhonchi, rales, expiratory wheezes. No dyspnea Abdominal: Soft, nondistended, NTTP, no guarding Neurological: Alert, answering questions appropriately, cranial nerves intact, no focal findings Extremities: No gross joint deformity or swelling. AROMI. Neurovascularly intact Skin: Warm, dry. Const: Vital Signs, click to edit/add: Vital Signs - 24 hr 06/23/23 11:49 06/23/23 15:30 06/23/23 15:30 Temperature 98.1 F 98.6 F Pulse Rate [Pulse Oximeter] 79 85 85 Respiratory Rate 16 16 16 Blood Pressure [Le ft Arm] 104/72 107/70 Pulse Oximetry 100 98 Oxygen Delivery Me thod Room Air Room Air 06/23/23 19:45 06/23/23 19:45 06/23/23 23:00 Temperature 98.6 F Pulse Rate [Pulse Oximeter] 87 87 Respiratory Rate 16 16 16 Blood Pressure [Le ft Arm] 102/72 Pulse Oximetry 98 Oxygen Delivery Me thod Room Air 06/23/23 23:00 06/24/23 03:00 06/24/23 08:40 Temperature 98.4 F 98.6 F 98.8 F Pulse Rate [Pulse Oximeter] 84 70 81 Respiratory Rate 16 16 16 Blood Pressure [Le ft Arm] 110/69 94/70 116/90 H Pulse Oximetry 95 96 98 Oxygen Delivery Me thod Room Air Room Air Room Air 06/24/23 08:40 Temperature Pulse Rate [Pulse Oximeter] 81 Respiratory Rate 16 Blood Pressure [Le ft Arm] Pulse Oximetry Oxygen Delivery Me thod Labs Labs: Laboratory Results - last 24 hr 06/23/23 06/24/23 14:35 06:08 WBC 7.84 RBC 2.92 L Hgb 9.7 L Hct 28.3 L MCV 97 MCH 33 MCHC 34 Plt Count 277 Sodium 134 L Potassium 3.4 L 2.9 L* Chloride 102 Carbon Dioxide 28 Anion Gap 4 L BUN < 2 L Creatinine 0.3 L Estimated Creat Clear 196.82 Estimated GFR 132 Glucose 102 Calcium 8.3 L Total Bilirubin 0.4 AST 99 H ALT 29 Alkaline Phosphatase 101 Total Protein 5.1 L Albumin 2.8 L Lipase 802 H
[2023-06-24 11:27] VITALS: BP 103/72; PULSE 90; RESP 14; TEMP 37.1; O2SAT 97
[2023-06-24 11:29] LABS: C.Difficile Negative (Negative); CDIFFEPI 027 PRESUMPTIVE NEGATIVE (Negative)
--- NOTE | 2023-06-24 14:14 | NUTR.NU ---
RDN attempted to visit with patient regarding positive MST score for eating poorly and reported weight loss. Patient was not available to visit at this time. Will attempt at later date.
--- NOTE | 2023-06-24 14:25 | PC.NURSE ---
End of Shift: Patient pleasant and cooperative. Patient vitally stable, lungs clear, BS WNL, IV running LR at 125. Patient denies pain and has denies nausea with this program writer. Although, when MD was in room patient was dry heaving. Patient tolerating full liquids and urinating. Patient had 1 small soft/loose stool, stool sample collected. Patient walked the rich today with family. Patient is either visiting with family or sleeping.
[2023-06-24 14:59] LABS: Potassium* 4.3 mmol/L (3.6-5.1)
[2023-06-24 15:00] VITALS: BP 111/76; PULSE 83; RESP 15; TEMP 37.2; O2SAT 94
[2023-06-24] MEDS: cefTRIAXone 1 GM in 0.9 % SODIUM CHLORIDE Mini-bag 100 ML IVPB (15:43)
[2023-06-24 19:00] VITALS: BP 111/72; PULSE 93; RESP 16; TEMP 37.3; O2SAT 98
[2023-06-24] MEDS: clonazePAM 0.5 MG TABLET PO (21:03)
[2023-06-24] MEDS: ACETAMINOPHEN 325 MG TABLET 650 MG PO (21:04)
[2023-06-24] MEDS: SODIUM CHLORIDE 0.9 % (FLUSH) 10 ML SYRINGE 5 ML IVF (21:04)
[2023-06-24] MEDS: ENOXAPARIN 40 MG/0.4 ML INJ SUBCUT (21:05)
[2023-06-24] MEDS: OXYCODONE 5 MG TABLET 2.5 MG PO (21:13)
--- NOTE | 2023-06-24 22:07 | PC.NURSE ---
VSS. RA. Left flank pain that radiates in a band across epigastric area of 4- relief w/ PRN tylenol & 2.5 mg oxy. Full liquid diet, very small amount of frothy emesis after dinner. 2100 cc cloudy light yellow urine. No BM. Hyperactive bowel sounds. PIV- SL'd, d/c LR @ 125 cc/hr. Up independently in room. Will continue to monitor, follow POC, and keep pt and family updated. Cyndy Mosley RN
[2023-06-24 23:00] VITALS: PULSE 93; RESP 16; O2SAT 98
[2023-06-25 03:00] VITALS: BP 96/69; PULSE 67; RESP 16; TEMP 36.8; O2SAT 96
[2023-06-25 06:24] LABS: Hematocrit 28.7 % (33.0-51.0); Hemoglobin* 9.6 gm/dL (12.0-16.0); Mean Corpuscular HGB Conc 33 gm/dL (32-36); Mean Corpuscular Hemoglobin 33 pg (26-34); Mean Corpuscular Volume 99 fL (80-100); Platelet Count* 274 K/uL (140-440); Red Blood Count 2.89 m/uL (4.00-5.20); White Blood Count* 7.21 K/uL (4.50-11.00)
[2023-06-25 06:40] LABS: Slide Review Reflex No
--- NOTE | 2023-06-25 06:51 | PC.NURSE ---
End of Shift: Pt AO, pleasant and cooperative throughout shift. Denied any pain, slept well. Reported no nausea, vomiting or diarrhea. Independent in room, continent with bladder, no BM throughout shift.
[2023-06-25 07:00] LABS: Albumin* 2.5 g/dL (3.3-5.0); Chloride* 102 mmol/L (96-114); Potassium* 3.4 mmol/L (3.6-5.1); Sodium* 136 mmol/L (135-149)
[2023-06-25 07:02] LABS: Creatinine* 0.3 mg/dL (0.5-1.5); Est. Creatinine Clearance* 196.82; Estimated Glomerular Filt Rate 132 ml/min
[2023-06-25 07:03] LABS: Alanine Aminotransferase* 24 U/L (4-35); Alkaline Phosphatase* 95 U/L (40-150); Anion Gap 5 mEq/L (7-15); Aspartate Amino Transferase* 72 U/L (12-35); Bilirubin Total* 0.2 mg/dL (0.1-1.5); Carbon Dioxide* 29 mmol/L (20-32); Glucose* 93 mg/dL (60-115); Total Protein* 4.9 g/dL (6.0-8.3)
[2023-06-25 07:04] LABS: Calcium* 8.4 mg/dL (8.4-10.6)
[2023-06-25 07:06] LABS: C Reactive Protein* 5.7 mg/dL (0.5-1.0)
[2023-06-25 07:16] LABS: Blood Urea Nitrogen* < 2 mg/dL (5-24)
[2023-06-25 07:19] LABS: Lipase* 383 U/L (23-300)
[2023-06-25 08:00] VITALS: PULSE 86; RESP 16
[2023-06-25 08:30] VITALS: BP 114/80; PULSE 86; RESP 16; TEMP 37.2; O2SAT 95
[2023-06-25] MEDS: METOCLOPRAMIDE 10 MG TABLET PO (09:41)
[2023-06-25] MEDS: clonazePAM 0.5 MG TABLET 1 MG PO (09:41)
[2023-06-25] MEDS: SODIUM CHLORIDE 0.9 % (FLUSH) 10 ML SYRINGE 5 ML IVF (09:42)
[2023-06-25] MEDS: SERTRALINE 100 MG TABLET 150 MG PO (09:42)
[2023-06-25] MEDS: ONDANSETRON ODT 4 MG TAB PO (10:16)
[2023-06-25 10:35] VITALS: BMI 20.3
--- NOTE | 2023-06-25 10:49 | P.DS_ITS ---
DS: Providers Provider Date Seen: 06/25/23 Date of admission: 06/23/23 01:57 Primary care physician: Robbi Mario MD Admitting Clinician: Selena Hawley MD Attending Physician on discharge: Betsy Montenegro, [facility], [facility] Date of Discharge: 06/25/23 DS: Diagnosis Discharge Diagnosis (1) Nausea and vomiting: Status: Acute Problem details: -ultrasound shows mild dilation of common bile duct measuring 9 millimeters. Distal obstructing stone not excluded. Biliary sludge without cholelithiasis/cholecystitis. -transaminitis noted, continue to trend- trending down (06/24); lipase 802, down from 1652 and 1523 admission -clear liquid diet tolerated, regular diet with nausea, dry heaving, stools. Encouraged full liquid diet 06/24. Continue maintenance IVF -pain and nausea management as needed. 06/24 start Reglan scheduled q.i.d., slower advancement of diet -MRCP (06/23) shows focal fatty infiltration of the liver, no MR evidence of pancreatitis or pancreatic ductal dilatation, extrahepatic common bile duct measures 8 mm in diameter without any evidence of choledocholithiasis, hydronephrosis left kidney with left renal calculi. Discussed with patient and concern for acute episode related to alcohol use. Chronic nausea with vomiting for what sounds to be a couple of years per patient report, possibly cyclical. Worsened with alcohol use, increased stressors. Has been using marijuana to help with symptoms so perhaps unlikely hyperemesis related to marijuana use. Discharge with famotidine twice daily, Reglan q.i.d., Vistaril p.r.n.. Recommend slowly advancing bland diet. Recommend outpatient follow-up with [facility]. (2) Alcohol use: Status: Acute Problem details: -reported 2 drinks daily - likely more -AST/ALT ratio >4 (ratio >3 in April 2023). MRCP without significant findings otherwise. Discussed with patient. -last drink 12-14 days ago now. Encouraged continued sobriety. Is not interested in director social resources. Following discharge from hospital, recommended looking into counseling given current stress, financial, work, relationship issues and recommendations for appropriate coping mechanisms. (3) Hypokalemia: Status: Acute Problem details: -potassium 3.0 down from 3.6 on admission -supplement with potassium bicarbonate 25 mEq x 3, follow- improved to 3.4 -potassium decreased 2.9, likely in setting of loose bowels last night. Will supplement again 25 mEq x3, with recheck. -treated with oral supplement during hospital stay with improvement noted during evening checks. Trending down in the mornings. Discharge with potassium chloride 20 mEq b.i.d. x3 days. Will need outpatient follow-up with PCP for recheck. (4) Hyponatremia: Status: Acute Problem details: -resolved prior to discharge -likely hypovolemic, decreased oral intake x 12 days, perhaps in setting of chronic alcohol use -continues to improve, 134 currently (5) UTI (urinary tract infection): Status: Acute Problem details: -symptomatic with increased frequency. Urine culture grew E coli, pansensitive. Receive 1 dose IV ceftriaxone in the hospital. Discharged with Bactrim DS to be taken twice daily x3 days. Follow-up with PCP. (6) Diarrhea: Status: Acute Problem details: -resolved prior to discharge -4 loose stools in past 24 hours. C difficile stool negative -hypokalemic following stools. Will need supplement. -recommend slowly advancing diet, starting with full liquids (7) Duplicated left renal collecting system: Status: Acute Problem details: Found by CT 2022, lower pole obstructed by 12 mm stone, asymptomatic. Outpatient follow-up with PCP DS: Summary Hospital Course Hospital Course: [age] year old female past medical history significant for anxiety, depression, alcohol use, THC use was admitted to the medical floor for further management nausea vomiting and suspected setting of acute pancreatitis. Course of care and details as noted above. Remainder of chronic medical comorbidities were monitored and managed with home medications. Outpatient follow-up with [facility] recommended for further evaluation and management. Status at Discharge Overall status at discharge: patient is back to baseline Time Spent with Patient Time attestation: Total time spent providing and/or coordinating discharge services: Time spent: Greater than 30 minutes Exam Narrative: Exam Narrative: PHYSICAL EXAM General: Conversant, NAD Cardiovascular: RRR Pulmonary: No dyspnea Neurological: Alert, answering questions appropriately Const: Vital Signs, click to edit/add: Vital Signs - 24 hr 06/24/23 11:27 06/24/23 15:00 06/24/23 15:00 Temperature 98.7 F 99.0 F Pulse Rate [Pulse Oximeter] 90 83 83 Respiratory Rate 14 15 15 Blood Pressure [Le ft Arm] 103/72 111/76 Pulse Oximetry 97 94 Oxygen Delivery Me thod Room Air Room Air 06/24/23 19:00 06/24/23 23:00 06/24/23 23:00 Temperature 99.2 F Pulse Rate [Pulse Oximeter] 93 93 93 Respiratory Rate 16 16 16 Blood Pressure [Le ft Arm] 111/72 Pulse Oximetry 98 98 Oxygen Delivery Me thod Room Air Room Air 06/25/23 03:00 06/25/23 08:00 06/25/23 08:30 Temperature 98.2 F 99.0 F Pulse Rate [Pulse Oximeter] 67 86 86 Respiratory Rate 16 16 16 Blood Pressure [Le ft Arm] 96/69 114/80 Pulse Oximetry 96 95 Oxygen Delivery Me thod Room Air Room Air DS: Data Data Completed and Pending Labs on day of discharge: Labs from last 24 hours 06/25/23 06/24/23 06/24/23 05:50 Unknown 14:33 WBC 7.21 RBC 2.89 L Hgb 9.6 L Hct 28.7 L MCV 99 MCH 33 MCHC 33 Plt Count 274 Sodium 136 Potassium 3.4 L 4.3 Chloride 102 Carbon Dioxide 29 Anion Gap 5 L BUN < 2 L Creatinine 0.3 L Estimated Creat Clear 196.82 Estimated GFR 132 Glucose 93 Lactate 1.0 Calcium 8.4 Total Bilirubin 0.2 AST 72 H ALT 24 Alkaline Phosphatase 95 C-Reactive Protein 5.7 H Total Protein 4.9 L Albumin 2.5 L Lipase 383 H Stl C. diff Tox B Gene Negative Stl C. diff [id number] PRESUMPTIVE NEGATIVE Discharge Plan Discharge Disposition: Home, Self-Care Date of Admission: 06/23/23 01:57 Attending Provider on Discharge: Betsy Montenegro Primary Care Provider: Robbi Mario Condition: Improved Anticipated Discharge Date/Time: 06/25/23 10:21 Discharge Medications: New metoclopramide HCl 10 mg Tablet 10 mg PO QID Qty: 90 0RF sulfamethoxazole-trimethoprim [Bactrim DS] 800-160 mg tablet 1 tab PO BID 3 Days Qty: 6 0RF potassium chloride 20 mEq tablet extended release 20 meq PO BID 3 Days Qty: 6 0RF hydroxyzine HCl 25 mg tablet 25 mg PO TID PRN (Reason: nausea and vomiting) Qty: 15 0RF famotidine 20 mg tablet 20 mg PO BID Qty: 60 0RF Continued sertraline 100 mg tablet 150 mg PO QDAY Qty: 135 0RF clonazepam 0.5 mg tablet See Rx Instructions PO .ud Qty: 42 0RF Rx Instructions: 0.5 mg QAM, and 1 mg QHS orally UD; clonazepam 1 mg tablet See Rx Instructions PO QDAY Qty: 21 1RF Rx Instructions: 0.5 mg QAM, and 1 mg QHS orally every day; Discontinued ondansetron 8 mg tablet,disintegrating 8 mg PO Q8H PRN (Reason: nausea and vomiting) Qty: 20 0RF Discharge Orders: Discharge Order (Routine); Ordered 06/25/23 Ordered By: Betsy Montenegro Patient Education: Urinary Tract Infection in Women (GEN), Hypokalemia (GEN), Cyclic Vomiting Syndrome (GEN) Additional Instructions: For your chronic nausea, take Reglan 4 times daily, PPI twice daily, hydroxyzine as needed. Outpatient follow-up with [facility] recommended. For your urinary tract infection, complete a 3 day course of Bactrim. Your potassium has been low, continue to take an oral supplement twice daily for the next 3 days. You will need to have your potassium level rechecked by your PCP. Continue your sobriety. Recommend seeking counseling. Activity Level: No Restrictions Discharge Diet: Regular Diet Detail: advance diet as tolerated. [place] diet. Follow Up Appointments: [facility] [Provider Group] - 07/16/23 (Chronic nausea/vomiting, acute transaminitis and fatty liver with history of alcohol use. Any provider. Any location. ) Robbi Mario MD [Primary Care Provider] - (Post hospital follow up chronic nausea/vomiting, hypokalemia, UTI, transaminitis with fatty liver in setting of alcohol use. Recheck potassium.) Forms: Georgina Goodman Info Instructions
--- NOTE | 2023-06-25 13:07 | PC.NURSE ---
Discharge note: Pt alert and oriented, pleasant and cooperative. Vitals stable, on RA. Pt denies pain. Pt had x1 episode of nausea with pt report scant frothy emesis in AM, pt states likely r/t to her moving around a lot this AM, PRN Zofran admin and pt states effectiveness and denies further nausea. Pt cleared for d/c by provider. Voiding without issue, last BM reported yesterday. D/C instructions reviewed with pt, questions answered. IV removed prior to d/c, catheter intact. Pt given WC ride to friend's car to d/c home.
== END 2023-06-25 12:05 | disposition home or self-care (01) ==
LOC: ED 06-23 01:01 → MEDSURG 06-23 01:58
PROVIDERS: Family Medicine; Internal Medicine; Physician Assistant; Admitting Provider Family Medicine; Emergency Provider Family Medicine; PCP Family Medicine; Visit Provider Family Medicine
DX: N39.0 Urinary tract infection, site not specified (principal); K76.0 Fatty (change of) liver, not elsewhere classified; E87.6 Hypokalemia; Q62.5 Duplication of ureter; F10.90 Alcohol use, unspecified, uncomplicated; E87.1 Hypo-osmolality and hyponatremia; R82.90 Unspecified abnormal findings in urine; F12.90 Cannabis use, unspecified, uncomplicated; F41.9 Anxiety disorder, unspecified; R63.4 Abnormal weight loss; Z68.20 Body mass index [BMI] 20.0-20.9, adult; R74.01 Elevation of levels of liver transaminase levels; R74.8 Abnormal levels of other serum enzymes; F32.A Depression, unspecified; R11.0 Nausea; R11.10 Vomiting, unspecified; R19.7 Diarrhea, unspecified; B96.20 Unspecified Escherichia coli [E. coli] as the cause of diseases classified elsewhere; Z16.30 Resistance to unspecified antimicrobial drugs; F17.290 Nicotine dependence, other tobacco product, uncomplicated; Z78.9 Other specified health status; Z98.891 History of uterine scar from previous surgery; Z87.442 Personal history of urinary calculi; Z90.49 Acquired absence of other specified parts of digestive tract; Z90.710 Acquired absence of both cervix and uterus; Z80.7 Family history of other malignant neoplasms of lymphoid, hematopoietic and related tissues; Z80.0 Family history of malignant neoplasm of digestive organs
CPT/HCPCS: 36415; 74177; 74183; 76705; 80053; 80306; 81003; 81015; 82077; 82150; 83605; 83690; 83735; 84132; 84703; 85025; 85027; 85610; 85730; 86140; 87086; 87186; 87493; 96361; 96365; 96366; 96372; 96375; 99284; 99285; A9270; A9575; G0378; J0696; J1650; J2405; J7030; J7120; Q9967

== ENCOUNTER 2023-07-14 09:21 | Outpatient (CLI) | payer MEDICAID, SELFPAY | END 2023-07-14 09:22 | disposition home or self-care (01) | PROVIDERS: PCP Family Medicine; Visit Provider Family Medicine | DX: N39.0 Urinary tract infection, site not specified (principal) | CPT/HCPCS: 80053; 83690; 87086; 87186 ==

== ENCOUNTER 2023-07-22 12:54 | Outpatient (CLI) | payer MEDICAID, SELFPAY ==
--- NOTE | 2023-07-22 13:00 | CRLHL7_ITS ---
For Patients: As a result of the Century Cures Act, medical imaging exams and procedure reports are released immediately into your electronic medical record. You may view this report before your referring provider. If you have questions, please contact your health care provider. BILATERAL BREAST MRI WITHOUT AND WITH GADOLINIUM CLINICAL HISTORY: Previous history of left breast stereotactic guided biopsy in 2021 showing focal indeterminate epithelial proliferation. Subsequent excision showed atypical ductal hyperplasia. No current breast related concerns. INDICATION FOR BREAST MRI: High-risk screening breast MRI. COMPARISON STUDIES: Mammograms 12/24/2022 and 11/13/2021. Breast MRI 05/30/2022. CONTRAST: 15 mL Dotarem. TECHNIQUE: The patient was positioned prone using a breast coil. Multiple imaging sequences were obtained using 1-1.5 mm thick slices with no gap. The image sequences include T2-weighted STIR in the axial plane, T1-weighted nonfat-saturated gradient echo in the axial plane, pre- and post-contrast T1-weighted FLASH 3D with fat suppression in the axial plane, and T1-weighted FLASH high resolution 3D with fat suppression in the sagittal plane. Image post-processing was performed on a [employer] workstation. Complex 3D rendering including maximum intensity projections (MIPS) and volumetric renderings were obtained to optimize visualization of the extent of pathology and relationship to the nipple, skin, and chest wall. This aids in determining feasibility of breast conservation surgery. Subtraction, multiplanar reconstruction, mean curve determination, and angiogenesis mapping were also performed. The study was technically adequate. FINDINGS: There is mild motion artifact. Amount of Fibroglandular Tissue: Scattered fibroglandular tissue. Breast Background Enhancement: Mild. RIGHT Breast: There is no suspicious mass or enhancement within the breast. LEFT Breast: There are expected postsurgical changes in the outer breast. No suspicious mass or enhancement within the breast. Lymph Nodes: No abnormal morphology lymph nodes. IMPRESSIONS AND RECOMMENDATIONS: 1. No MRI evidence of malignancy in either breast. 2. Annual screening mammography is recommended. If clinically indicated, continued screening breast MRI may also be performed, staggered at six-month intervals with screening mammography. BI-RADS Category 2: Benign. Dictated by Clementine Shoemaker MD @ 07/24/2023 4:12:23 PM (Electronically Signed)
== END 2023-07-22 12:55 | disposition home or self-care (01) ==
LOC: MRI 12:55
PROVIDERS: PCP Family Medicine; Visit Provider Surgery
DX: Z12.39 Encounter for other screening for malignant neoplasm of breast (principal)
CPT/HCPCS: 77049; A9575

== ENCOUNTER 2023-08-07 10:47 | Outpatient (CLI) | payer MEDICAID, SELFPAY | END 2023-08-07 10:48 | disposition home or self-care (01) | PROVIDERS: PCP Family Medicine; Visit Provider Family Medicine | DX: R11.2 Nausea with vomiting, unspecified (principal) | CPT/HCPCS: 83690 ==

== ENCOUNTER 2023-08-18 11:50 | Outpatient (CLI) | payer MEDICAID, SELFPAY ==
--- NOTE | 2023-08-18 12:00 | CRLHL7_ITS ---
For Patients: As a result of the Century Cures Act, medical imaging exams and procedure reports are released immediately into your electronic medical record. You may view this report before your referring provider. If you have questions, please contact your health care provider. Indication: Left kidney stone Technique: Nuclear medicine renal Lasix scan per protocol. Radiopharmaceutical: 9.8 millicuries technetium 99 M Mag 3 intravenously. Pharmaceutical: 20 milligrams of Lasix intravenously. Comparison: CT abdomen and pelvis June 22, 2023 Findings: Flow: Prompt and symmetric. Split renal function 46 percent left, 54 percent right. Renal phase: Normal extraction and excretion of the radiopharmaceutical bilaterally. There is mild residual activity within the left collecting system prior to the administration of Lasix. Collecting system clearance: Right collecting system clearance is normal prior to the administration of Lasix. After the administration of Lasix there is good washout from the left collecting system. The left T/12 is not accurate on the save screens as the CARLOS was not appropriately done. Impression: Normal symmetric renal function without evidence of high-grade obstruction. Dictated by Abdirashid Mccord MD @ 08/18/2023 5:55:25 PM (Electronically Signed)
--- NOTE | 2023-08-18 13:00 | CRLHL7_ITS ---
For Patients: As a result of the Century Cures Act, medical imaging exams and procedure reports are released immediately into your electronic medical record. You may view this report before your referring provider. If you have questions, please contact your health care provider. Indication: KIDNEY STONE, LT SIDE Technique: Abdomen 1 view. Comparison: CT 06/22/2023 Findings: 12 millimeter stone again noted within the left kidney. Right kidney normal. Pelvic phleboliths. No bowel obstruction. Impression: Left renal stone again noted. Dictated by Colton Mcintyre MD @ 08/19/2023 6:42:31 AM (Electronically Signed)
== END 2023-08-18 11:51 | disposition home or self-care (01) ==
PROVIDERS: PCP Family Medicine; Visit Provider Urology
DX: N20.0 Calculus of kidney (principal)
CPT/HCPCS: 74018; 78708; A9562; J1940

== ENCOUNTER 2023-09-28 10:42 | Emergency (ER) | payer MEDICAID, SELFPAY ==
[2023-09-28] VITALS (19 sets, daily range): BP systolic 138–165; BP diastolic 74–122; PULSE 80–111; RESP 18; TEMP 36.6–36.9; O2SAT 98–100; BMI 18.4
--- NOTE | 2023-09-28 12:35 | ED_ITS ---
HPI - Nausea/Vomiting/Diarrhea General Time Seen by Provider: 12:29 Date Seen: 09/28/23 Chief complaint: Nausea/Vomiting Stated complaint: Vomiting Time Seen by Provider: 09/28/23 12:29 Source: patient, RN notes reviewed and old records reviewed Mode of arrival: ambulatory Limitations: no limitations History of Present Illness HPI Narrative: Patient is a 48-year-old female coming in with concern of recurrent nausea and vomiting. She states it started Thursday, Thursday was the worst. She states she was trying all different kinds of fluids in methods to keep her hydrated yesterday. She really has not noted any stool output as she can not eat. She has had no abdominal pain. No fevers or chills. She does drink socially but not a lot. She is taking THC gummies at night to sleep. She will occasionally smoke marijuana. She denies any significant alcohol use precipitating her symptoms on Thursday. She was hospitalized here about 3 months ago with conc erns with elevated lipase, ended up with an MRCP, reportedly no evidence of any obstructive etiology or pancreatitis. 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 She is unaware of the terminology sickle vomiting today. MD elicited complaint: nausea and vomiting Associated abdominal pain: No Related Data Home Medications Medication Instructions Recorded Confirmed esomeprazole magnesium 40 mg 40 mg PO DAILY 08/07/23 09/28/23 capsule,delayed release Previous Rx's Medication Instructions Recorded clonazepam 0.5 mg tablet See Rx Instructions PO .ud #42 tabs 05/27/23 famotidine 20 mg tablet 20 mg PO BID #60 tabs 06/25/23 hydroxyzine HCl 25 mg tablet 25 mg PO TID PRN nausea and 06/25/23 vomiting #15 tabs metoclopramide HCl 10 mg tablet 10 mg PO QID #90 tabs 06/25/23 ondansetron 4 mg disintegrating 4 mg PO Q6H PRN nausea and 07/14/23 tablet vomiting #40 tabs fludrocortisone 0.1 mg tablet 0.1 mg PO QDAY #30 tabs 08/07/23 paroxetine HCl 20 mg tablet 20 mg PO QDAY #30 tabs 08/07/23 ondansetron 4 mg disintegrating 4 mg PO Q6H PRN nausea and 09/28/23 tablet vomiting #20 tabs Allergies Allergy/AdvReac Type Severity Reaction Status Date / Time Penicillins Allergy Mild Verified 08/07/23 10:09 Review of Systems Status of ROS: Reports: 6 or more systems reviewed and unremarkable except as noted in History and below [facility] Medical History UTI (urinary tract infection) ?N39.0 - Urinary tract infection, site not specified (ICD-10) Acute pancreatitis ?K85.90 - Acute pancreatitis without necrosis or infection, unspecified (ICD- 10) Surgical History Status post hysterectomy ?Z90.710 - Acquired absence of both cervix and uterus (ICD-10) Status post delivery ?Z98.891 - History of uterine scar from previous surgery (ICD-10) Status post appendectomy ?Z90.49 - Acquired absence of other specified parts of digestive tract (ICD- 10) Family History Other Colon cancer Hodgkins disease Social History Narrative: Nicotine vapor product user What is your current living situation?: I presently have a place to live Problems where you live: no known problems and declined to answer Problems where you live details: N/A In the past 12 months, utilities in danger of being shut off: no In past 12 months, lack of transportation kept you from medical appts, meetings, work, or getting things needed for daily living: no In the past 12 mos, have been you worried that your food would run out before you had money to buy more?: never true In the past 12 mos, the food you bought just didn't last and you didn't have money to buy more?: never true Highest level of school completed/degree received: some college, no degree Smoking Status: Current every day smoker Do you use any of these nicotine containing products: Vaping Products Second hand tobacco smoke exposure: No How often do you have a drink containing alcohol: 4 or more times a week Alcohol type: hard liquor Alcohol type details: STOPPED DRINKING AT BEGINNING OF ILLNESS. How many standard drinks containing alcohol do you have on a typical day: 1 or 2 How often do you have six or more drinks on one occasion: Never AUDIT-C Alcohol total score: 4 Non-prescribed substance use: marijuana (any form) Caffeine: No How often does anyone, including family, friends and others, physically hurt you : never How often does anyone, including family, friends and others, insult or talk down to you: never How often does anyone, including family, friends and others, threaten you with harm: never How often does anyone, including family, friends and others, scream or curse at you: never Little interest or pleasure in doing things: more than half the days Feeling down, depressed, or hopeless: more than half the days service: No Exam Const: Vital Signs, click to edit/add: Vital Signs - 24 hr 09/28/23 10:48 09/28/23 12:39 09/28/23 13:22 Temperature 98.4 F Pulse Rate 82 Pulse Rate [Pulse Oximeter] 111 H Respiratory Rate 18 Blood Pressure Blood Pressure [Ri ght Upper Arm] 141/97 H Pulse Oximetry 99 98 100 Oxygen Delivery Me od Room Air 09/28/23 13:23 09/28/23 13:30 09/28/23 13:45 Temperature 98 F Pulse Rate 85 88 Pulse Rate [Pulse Oximeter] 88 Respiratory Rate 18 Blood Pressure Blood Pressure [Ri ght Upper Arm] 138/74 Pulse Oximetry 98 100 99 [facility] 09/28/23 14:00 09/28/23 14:15 09/28/23 14:17 Temperature Pulse Rate 83 85 87 Pulse Rate [Pulse Oximeter] Respiratory Rate Blood Pressure 142/100 H Blood Pressure [Ri ght Upper Arm] Pulse Oximetry 100 100 99 Oxygen Delivery Oh thod 09/28/23 14:30 09/28/23 14:31 09/28/23 14:52 Temperature Pulse Rate 82 80 85 Pulse Rate [Pulse Oximeter] Respiratory Rate Blood Pressure 156/106 H Blood Pressure [Ri ght Upper Arm] Pulse Oximetry 100 100 98 Oxygen Delivery Oh thod 09/28/23 15:00 09/28/23 15:04 09/28/23 15:04 Temperature Pulse Rate 81 87 87 Pulse Rate [Pulse Oximeter] Respiratory Rate Blood Pressure Blood Pressure [Ri [facility] Upper Arm] Pulse Oximetry 99 100 100 Oxygen Delivery Me thod 09/28/23 15:09 09/28/23 15:15 09/28/23 15:16 Temperature Pulse Rate 83 83 89 Pulse Rate [Pulse Oximeter] Respiratory Rate Blood Pressure 147/122 H 165/118 H Blood Pressure [Ri ght Upper Arm] Pulse Oximetry 100 100 100 Oxygen Delivery Me thod 09/28/23 15:30 09/28/23 15:31 Temperature Pulse Rate 83 92 Pulse Rate [Pulse Oximeter] Respiratory Rate Blood Pressure 156/112 H Blood Pressure [Ri t Upper Arm] Pulse Oximetry 100 100 Oxygen Delivery Me thod Patient is alert, interactive, no apparent distress, very pleasant and conversive with me. Pupils are equal own round, conjugate gaze, sclera clear. Symmetrical facial function. Lips are normal, not dry her cracked. Oropharynx with normal mucosa, mucosa looks well hydrated. Neck is supple, no adenopathy or masses noted. Lungs are clear, good air entry, no wheezing or crackles. CV is slightly fast regular, no murmur, normal S1-S2, no S3 or S4. Abdomen is flat, soft, nondistended, no organomegaly, nontender without any rebound or guarding. I feel no abdominal masses. She does have some tattoos but otherwise no no rash or skin changes. Documenting provider has reviewed patient's vital signs: yes Course Course ED Course: Reviewed with patient that this certainly could be cyclical vomiting. Will obtain full complement of labs including lipase. She has absolutely no abdominal pain at this time which would make pancreatitis less likely. Will initiate a L of IV fluids and 4 mg IV Zofran. Do not feel she requires any im aging at this time. Will see what labs show and how responsive she is to IV fluids and Zofran. Reevaluation(s) Time of Reevaluation #1: 15:00 Reevaluation #1: Have reviewed with Yulia that her liver enzymes suggest alcohol use. Lipase is not significantly elevated. She really has no clinical tenderness on examination. I do suspect that she is potentially going into cyclical vomiting. We did review her potassium is low. She is receiving IV 10 mEq of potassium right now. She did drink the 25 mEq of effervescent potassium. Right now, she is feeling better, no nausea or subsequent vomiting. She did even get the effervescent potassium down. She is receiving a 2 L of fluids with lactated Ringer's. Will likely discharge to home after her potassium is in. Vital Signs Vital signs: Initial Vital Signs Temperature 98.4 F 09/28/23 10:48 Temperature Source Temporal Artery Scan 09/28/23 10:48 Pulse Rate 111 H 09/28/23 10:48 Respiratory Rate 18 09/28/23 10:48 Blood Pressure 141/97 H 09/28/23 10:48 Blood Pressure Mean 111 H 09/28/23 10:48 Blood Pressure Position Supine 09/28/23 10:48 Pulse Oximetry 99 09/28/23 10:48 Oxygen Delivery Method Room Air 09/28/23 10:48 Vital Signs Temperature 98.4 F 09/28/23 10:48 Pulse Rate 111 H 09/28/23 10:48 Respiratory Rate 18 09/28/23 10:48 Blood Pressure 141/97 H 09/28/23 10:48 Pulse Oximetry 99 09/28/23 10:48 Oxygen Delivery Method Room Air 09/28/23 10:48 Temperature 98 F 09/28/23 13:23 Pulse Rate 92 09/28/23 15:31 Respiratory Rate 18 09/28/23 13:23 Blood Pressure 156/112 H 09/28/23 15:31 Pulse Oximetry 100 09/28/23 15:31 Oxygen Delivery Method Room Air 09/28/23 13:23 Medications Administered Medications: Discontinued Medications Generic Name Dose Route Start Last Admin Trade Name Freq PRN Reason Stop Dose Admin Sodium Chloride 1,000 mls @ 1,000 mls/hr 09/28/23 12:45 09/28/23 14:19 0.9 % Sodium Chloride 1000 Ml IV 09/28/23 13:44 Infused .Q1H GENOVEVA Infusion Lactated Ringer's 1,000 mls @ 1,000 mls/hr 09/28/23 13:48 09/28/23 15:15 Lactated Ringers 1000 Ml IV 09/28/23 14:47 Infused .Q1H ONE Infusion Potassium Chloride 10 meq in 100 mls @ 100 mls/hr 09/28/23 13:49 09/28/23 15:32 Potassium Chloride IVPB 09/28/23 14:48 Infused ONCE ONE Infusion Ondansetron HCl 4 mg 09/28/23 12:45 09/28/23 13:04 Ondansetron 2 Mg/Ml Inj IVP 09/28/23 12:46 4 mg ONCE ONE Administration Potassium Bicarbonate 25 meq 09/28/23 13:48 09/28/23 14:29 Potassium Bicarb 25 Meq Effervescent Tab PO 09/28/23 13:49 25 meq ONCE ONE Administration MDM - Nausea/Vomiting/Diarrhea Lab Data Labs: Lab Results 09/28/23 09/28/23 Range/Units 12:55 14:49 WBC 11.73 H (4.50-11.00) K/uL RBC 4.35 (4.00-5.20) m/uL Hgb 15.1 (12.0-16.0) gm/dL Hct 43.5 (33.0-51.0) % MCV 100 (80-100) fL MCH 35 H (26-34) pg MCHC 35 (32-36) gm/dL RDW Coeff of Alyssa 14.4 (11.5-15.5) % Plt Count 262 (140-440) K/uL Neut % (Auto) 84.0 H (42.0-72.0) % Lymph % (Auto) 8.3 L (20-44) % [place] % (Auto) 7.5 (0.0-11.0) % Eos % (Auto) 0.0 (0.0-7.0) % Baso % (Auto) 0.0 (0.0-3.0) % Neut # (Auto) 9.90 H (1.7-7.0) K/uL Lymph # (Auto) 1.00 (0.90-2.90) K/uL [place] # (Auto) 0.90 (0.00-0.90) K/UL Eos # (Auto) 0.00 (0.00-0.50) K/uL Baso # (Auto) 0.00 (0.00-0.30) K/uL Abs Immat Gran (auto) 0.00 (0.00-0.30) K/uL Imm/Tot Granulo (auto) 0.2 % Sodium 134 L (135-149) mmol/L Potassium 2.9 L* (3.6-5.1) mmol/L Chloride 95 L (96-114) mmol/L Carbon Dioxide 15 L (20-32) mmol/L Anion Gap 24 H (7-15) mEq/L BUN 26 H (5-24) mg/dL Creatinine 0.9 (0.5-1.5) mg/dL Estimated Creat Clear 58.57 Estimated GFR 79 ml/min Glucose 112 (60-115) mg/dL Lactate 1.4 (0.5-1.9) mmol/L Calcium 10.1 (8.4-10.6) mg/dL Magnesium 2.0 (1.5-2.6) mg/dL Total Bilirubin 1.0 (0.1-1.5) mg/dL Direct Bilirubin 0.6 H (0.0-0.5) mg/dL AST 152 H (12-35) U/L ALT 76 H (4-35) U/L Alkaline Phosphatase 115 (40-150) U/L C-Reactive Protein 1.9 H (0.5-1.0) mg/dL Total Protein 8.4 H (6.0-8.3) g/dL Albumin 5.4 H (3.3-5.0) g/dL Lipase 378 H (23-300) U/L Urine Color Yellow (Yellow) Urine Appearance Cloudy A (Clear) Urine pH 6.5 (5.0-8.5) Ur Specific [place] 1.015 (1.000-1.030) Urine Protein Negative (Negative) Urine Glucose (UA) Negative (Negative) Urine Ketones 2+ A (Negative) Urine Blood 1+ A (Negative) Urine Nitrite Negative (Negative) Urine Bilirubin Negative (Negative) Urine Urobilinogen 0.2 (0.2-1.0) Ur Leukocyte Esterase 3+ A (Negative) Urine RBC 0-2 (0-2) Urine WBC 25-50 A (0-5) Ur Squamous Epith Cells Moderate A (None-Few) Urine Bacteria Moderate A (None) Ethyl Alcohol < 0.01 L (0.01-0.03) % Discharge Plan Discharge Clinical Impression: Acute hypokalemia Nausea & vomiting Qualifiers: Vomiting type: unspecified Qualified Code(s): R11.2 - Nausea with vomiting, unspecified Patient Disposition: Home, Self-Care Condition: Stable Instructions: Potassium Content of Foods List (ED), Hypokalemia (ED), Acute Nausea and Vomiting (ED), Cyclic Vomiting Syndrome (ED) Additional Instructions: Use Zofran as needed for any further nausea or vomiting. If vomiting does start back up again, try the Zofran. If vomiting is not controlled by Zofran, you will need to seek re-evaluation and have your potassium rechecked. Try to eat foods with higher content of potassium, review handout. Hopefully, with the Zofran in the hydration and potassium repletion you have received today, you will improve. You really do need to try to avoid alcohol and THC, these are likely triggers for this for you. I do suspect that you may be developing what is called cyclic vomiting. Recommend that you follow-up with Gastroenterology, can get this referral through your primary care provider. Schedule a follow-up with her primary care provider this week for recheck. Activity Level: Activity as Tolerated Prescriptions: New ondansetron 4 mg tablet,disintegrating 4 mg PO Q6H PRN (Reason: nausea and vomiting) Qty: 20 0RF No Action ondansetron 4 mg tablet,disintegrating 4 mg PO Q6H PRN (Reason: nausea and vomiting) Qty: 40 1RF esomeprazole magnesium 40 mg capsule,delayed release(DR/EC) 40 mg PO DAILY paroxetine HCl 20 mg tablet 20 mg PO QDAY Qty: 30 11RF fludrocortisone 0.1 mg tablet 0.1 mg PO QDAY Qty: 30 5RF metoclopramide HCl 10 mg Tablet 10 mg PO QID Qty: 90 0RF hydroxyzine HCl 25 mg tablet 25 mg PO TID PRN (Reason: nausea and vomiting) Qty: 15 0RF famotidine 20 mg tablet 20 mg PO BID Qty: 60 0RF clonazepam 0.5 mg tablet See Rx Instructions PO .ud Qty: 42 0RF Rx Instructions: 0.5 mg QAM, and 1 mg QHS orally UD; Follow Up/Referrals: Robbi Mario MD [Primary Care Provider] - Stand Alone Forms: [employer] Info Instructions
[2023-09-28] MEDS: 0.9 % SODIUM CHLORIDE 1000 ml 1,000 ML IV (13:03)
[2023-09-28 13:04] LABS: Lactate* 1.4 mmol/L (0.5-1.9)
[2023-09-28] MEDS: ONDANSETRON 2 MG/ML inj 4 MG IVP (13:04)
[2023-09-28 13:13] LABS: Hematocrit 43.5 % (33.0-51.0); Hemoglobin* 15.1 gm/dL (12.0-16.0); Immature Granulocytes Pct Auto 0.2 %; Lymphocytes Percent Auto 8.3 % (20-44); Mean Corpuscular HGB Conc 35 gm/dL (32-36); Mean Corpuscular Hemoglobin 35 pg (26-34); Mean Corpuscular Volume 100 fL (80-100); Monocytes Percent Auto 7.5 % (0.0-11.0); Platelet Count* 262 K/uL (140-440); RDW Coefficient of Variation % 14.4 % (11.5-15.5); Red Blood Count 4.35 m/uL (4.00-5.20); Slide Review Reflex No; White Blood Count* 11.73 K/uL (4.50-11.00)
[2023-09-28 13:22] LABS: Albumin* 5.4 g/dL (3.3-5.0); Chloride* 95 mmol/L (96-114); Sodium* 134 mmol/L (135-149)
[2023-09-28 13:24] LABS: Creatinine* 0.9 mg/dL (0.5-1.5); Est. Creatinine Clearance* 58.57; Estimated Glomerular Filt Rate 79 ml/min
[2023-09-28 13:25] LABS: Anion Gap 24 mEq/L (7-15); Aspartate Amino Transferase* 152 U/L (12-35); Bilirubin Direct* 0.6 mg/dL (0.0-0.5); Carbon Dioxide* 15 mmol/L (20-32); Total Protein* 8.4 g/dL (6.0-8.3)
[2023-09-28 13:26] LABS: Alanine Aminotransferase* 76 U/L (4-35); Alkaline Phosphatase* 115 U/L (40-150); Blood Urea Nitrogen* 26 mg/dL (5-24); Calcium* 10.1 mg/dL (8.4-10.6); Glucose* 112 mg/dL (60-115); Lipase* 378 U/L (23-300)
[2023-09-28 13:28] LABS: C Reactive Protein* 1.9 mg/dL (0.5-1.0)
[2023-09-28 13:33] LABS: Ethanol* < 0.01 % (0.01-0.03); Potassium* 2.9 mmol/L (3.6-5.1)
[2023-09-28] MEDS: LACTATED RINGERS 1000 ML 1,000 ML IV (14:19)
[2023-09-28] MEDS: POTASSIUM BICARB 25 MEQ EFFERVESCENT TAB PO (14:29)
[2023-09-28] MEDS: POTASSIUM CHLORIDE 10 MEQ/100 ML PIGGYBACK 100 MEQ IVPB (14:29)
[2023-09-28 15:15] LABS: Appearance Urine Cloudy (Clear); Bilirubin Urine Negative (Negative); Blood Urine 1+ (Negative); Color Urine Yellow (Yellow); Glucose Urine Negative (Negative); Ketones Urine 2+ (Negative); Leukocyte Esterase Urine 3+ (Negative); Nitrite Urine Negative (Negative); Protein Urine Negative (Negative); Specific Gravity Urine 1.015 (1.000-1.030); Urobilinogen Urine 0.2 (0.2-1.0); pH Urine 6.5 (5.0-8.5)
[2023-09-28 15:19] LABS: Bacteria Urine Moderate; RBC Urine 0-2 (0-2); Squamous Epithelial Cell Urine Moderate (None-Few); WBC Urine 25-50 (0-5)
--- NOTE | 2023-09-30 14:44 | ED.NURSE ---
Called patient and talked to see how doing. Dr. Hurtado is wanting to place on Keflex 250mg orally QID x 5 days. Called the script into [facility].
== END 2023-09-28 17:17 | disposition home or self-care (01) ==
PROVIDERS: Emergency Provider Family Medicine; PCP Family Medicine
DX: E87.6 Hypokalemia (principal); R11.2 Nausea with vomiting, unspecified
CPT/HCPCS: 36415; 80053; 81001; 82077; 82248; 83605; 83690; 83735; 85025; 86140; 87086; 87186; 94761; 96365; 96375; 99284; A9270; J2405; J3480; J7030; J7120

== ENCOUNTER 2023-10-07 08:35 | Outpatient (CLI) | payer MEDICAID, SELFPAY | END 2023-10-07 08:36 | disposition home or self-care (01) | PROVIDERS: PCP Family Medicine; Visit Provider Family Medicine | DX: K85.90 Acute pancreatitis without necrosis or infection, unspecified (principal); K70.10 Alcoholic hepatitis without ascites; N39.0 Urinary tract infection, site not specified | CPT/HCPCS: 80076; 83690; 87086 ==

== ENCOUNTER 2024-01-06 14:40 | Outpatient (CLI) | payer MEDICAID, SELFPAY ==
--- NOTE | 2024-01-06 14:40 | MM_ITS ---
Patient: CHINTAN VELOZ Facility:?[facility] Patient ID:?[id number] Site Patient ID:?[id number] Site :?[id number] Study:?XRay-Breast Bilateral 3D W/CAD-01/06/2024 3:45:31 PM Ordering Physician:?Su Rueda Final Report: BILATERAL SCREENING MAMMOGRAM WITH COMPUTER-AIDED DETECTION AND TOMOSYNTHESIS TECHNIQUE: CC and MLO views were obtained. These mammographic images have been obtained using full-field digital technique. These mammographic images were interpreted with the benefit of computer-aided detection. Breast Tomosynthesis was used in this interpretation. COMPARISON FILM: 12/24/22, 01/06/22, 11/25/21. FINDINGS: There are scattered areas of fibroglandular density. IMPRESSION: There is no radiographic evidence for malignancy. ASSESSMENT: BI-RADS Category 2: Benign RECOMMENDATION: Routine screening mammogram in 1 year. A lay language report of this examination will be provided to the patient. Colton Mcintyre M.D. Diagnostic Radiologist [email or web address] DSM/sp R& Transcribed: 4:07 p.m. SP/Dictated by: Colton Mcintyre MD @ 01/07/2024 1:03:00 PM Signed by:?Colton Mcintyre MD @01/07/2024 4:30:42 PM (Electronic Signature)
== END 2024-01-06 14:41 | disposition home or self-care (01) ==
LOC: MAMMO 14:40
PROVIDERS: PCP Family Medicine; Visit Provider Surgery
DX: Z12.31 Encounter for screening mammogram for malignant neoplasm of breast (principal)
CPT/HCPCS: 77063; 77067

== ENCOUNTER 2024-07-06 14:28 | Outpatient (CLI) | payer MEDICAID, SELFPAY ==
--- NOTE | 2024-07-06 14:30 | CRLHL7_ITS ---
For Patients: As a result of the Century Cures Act, medical imaging exams and procedure reports are released immediately into your electronic medical record. You may view this report before your referring provider. If you have questions, please contact your health care provider. BILATERAL BREAST MRI WITHOUT AND WITH GADOLINIUM CLINICAL HISTORY: 48-year-old female with elevated risk of breast cancer due to prior biopsy demonstrating atypical ductal hyperplasia. INDICATION FOR BREAST MRI: Screening breast MRI in this high-risk woman. COMPARISON STUDIES: Breast MRI 07/22/2023, 05/30/2022, mammogram 01/06/2024. CONTRAST: 20 cc of Dotarem. TECHNIQUE: The patient was positioned prone using a breast coil. Multiple imaging sequences were obtained using 1-1.5 mm thick slices with no gap. The image sequences include T2-weighted STIR in the axial plane, T1-weighted nonfat-saturated gradient echo in the axial plane, pre- and post-contrast T1-weighted FLASH 3D with fat suppression in the axial plane, and T1-weighted FLASH high resolution 3D with fat suppression in the sagittal plane. Image post-processing was performed on a [employer] workstation. Complex 3D rendering including maximum intensity projections (MIPS) and volumetric renderings were obtained to optimize visualization of the extent of pathology and relationship to the nipple, skin, and chest wall. This aids in determining feasibility of breast conservation surgery. Subtraction, multiplanar reconstruction, mean curve determination, and angiogenesis mapping were also performed. The study was technically adequate. FINDINGS: Amount of Fibroglandular Tissue: Scattered fibroglandular tissue. Breast Background Enhancement: Minimal. RIGHT Breast: No suspicious areas of enhancement. LEFT Breast: Benign postsurgical changes of excisional biopsy. No suspicious areas of enhancement. Lymph Nodes: No adenopathy. IMPRESSIONS AND RECOMMENDATIONS: Benign, there is no MRI evidence of malignancy. Continue annual screening mammography and as clinically indicated screening breast MRI. The mammogram and MRI should be offset by six-month intervals of time. BI-RADS Category 2: Benign Dictated by Yenni Fry MD @ 07/07/2024 1:58:43 PM /sp SP/Dictated by: Yenni Fry MD @ 07/07/2024 1:58:00 PM (Electronically Signed)
== END 2024-07-06 14:29 | disposition home or self-care (01) ==
LOC: MRI 14:29
PROVIDERS: PCP Family Medicine; Visit Provider Surgery
DX: Z12.39 Encounter for other screening for malignant neoplasm of breast (principal); N60.92 Unspecified benign mammary dysplasia of left breast
CPT/HCPCS: 77049; C8908; C8937; A9575

== ENCOUNTER 2025-05-25 09:02 | Outpatient (CLI) | payer BC, SELFPAY ==
--- NOTE | 2025-05-25 09:15 | CRLHL7_ITS ---
For Patients: As a result of the Century Cures Act, medical imaging exams and procedure reports are released immediately into your electronic medical record. You may view this report before your referring provider. If you have questions, please contact your health care provider. INDICATION: BILATERAL SCREENING MAMMOGRAM, ASYMPTOMATIC 49 Y/O FEMALE COMPARISON: 01/06/2024, 12/24/2022, 11/13/2021 TECHNIQUE: Digital mammogram in CC and MLO projections including computer-aided detection (CAD) and tomosynthesis. BREAST COMPOSITION: There are scattered areas of fibroglandular density. FINDINGS: No suspicious findings. ASSESSMENT: BI-RADS 1 Negative RECOMMENDATION: Annual screening mammogram. A lay language report of this examination will be provided to the patient. Dictated by: Colton Mcintyre MD @ 05/25/2025 09:53:39 (Electronically Signed)
== END 2025-05-25 09:03 | disposition home or self-care (01) ==
LOC: MAMMO 09:03
PROVIDERS: PCP Family Medicine; Visit Provider Family Medicine
DX: Z12.31 Encounter for screening mammogram for malignant neoplasm of breast (principal)
CPT/HCPCS: 77063; 77067